=== PATIENT | female | born 1950 | race Caucasian/White ===

== ENCOUNTER → 2017-02-02 | Outpatient (CLI) | payer MEDICARE, OTHER ==
[~2017-02-02] MED LIST: ATEN25TA PO; IBUP200C PO; MAGN1TAB25 PO; PANT40TA2 PO; PRAV40TA2 PO; PROA1AER IN; TYLE325T5 PO
--- NOTE | 2017-02-02 11:38 | REPMRS ---
Patient History The patient states she had a clinical breast exam in 2015. Patient is postmenopausal. Family history of breast cancer in mother at age 56. Digital Mammo Screening Bilat: February 02, 2017 - Exam #: [id number] Bilateral CC and MLO view(s) were taken. Technologist: Opal Cruz Technologist Prior study comparison: January 21, 2016, bilateral digital mammo screening bilat performed at [facility]. December 17, 2014, bilateral digital mammo screening bilat performed at [facility]. December 02, 2013, bilateral bilat screen digital mammo, performed at [facility] ([facility]). FINDINGS: There are scattered fibroglandular densities. There has been no change in the appearance of the mammogram from the prior studies. There is a mild amount of scattered fibroglandular density which is fairly symmetric. There is no interval development of dominant mass, architectural distortion, or clustered microcalcification suggestive of malignancy. ASSESSMENT: BI-RADS/ACR category 1 mammogram. Negative. Recommendation Routine screening mammogram in 1 year (for women over age 40). This mammogram was interpreted with the aid of an FDA-approved computer-aided dectection system. Electronically Signed By: Pillo Piedra MD 02/02/17 [id number]
== END ==
LOC: M RAD 10:54
PROVIDERS: ATTEND Physician Assistant
DX: Z12.31 Encounter for screening mammogram for malignant neoplasm of breast (principal)

== ENCOUNTER → 2017-03-07 | Outpatient (REF) | payer MEDICARE, OTHER ==
[~2017-03-07] MED LIST changes: -IBUP200C PO; +IBUP200C10 PO; -PROA1AER IN; +PROAAER10 IN
== END ==
LOC: M SFHCPLAZ 11:35
PROVIDERS: ATTEND Dermatology
DX: L57.0 Actinic keratosis (principal)
CPT/HCPCS: 11100; 17000; 17003; 88305; G0463

== ENCOUNTER → 2018-02-12 | Outpatient (CLI) | payer MEDICARE, OTHER | LOC: M RAD 09:48 | DX: Z12.31 Encounter for screening mammogram for malignant neoplasm of breast (principal) | CPT/HCPCS: 77067 ==

== ENCOUNTER 2018-03-21 16:29 | Emergency (ER) | payer MEDICARE, OTHER ==
[2018-03-21] MEDS: ADENOSINE 6MG/2ML INJECTION (J0153) IV ×2 (16:38→16:58)
[2018-03-21] MEDS: NS 1,000 ML IV (16:45)
[2018-03-21] MEDS: ASPIRIN 81 MG CHEW TABLET PO (16:45)
[2018-03-21 17:01] LABS: BASO % 0.3 % (0.0-1.0); EOS % 0.3 % (0.0-3.0); HEMATOCRIT 36.7 % (36.0-47.0); HEMOGLOBIN 12.2 g/dl (12.0-15.5); IMMATURE GRANULOCYTE % 0.6 % (0-3.0); LYMPH # 2.2 10^3/uL (1.5-4.5); LYMPH % 18.8 % (24.0-44.0); MEAN CORPUSCULAR HEMOGLOBIN 30.1 pg (27.0-33.0); MEAN CORPUSCULAR HGB CONC 33.2 g/dl (32.0-36.5); MEAN CORPUSCULAR VOLUME 90.6 fl (80.0-96.0); MONO # 0.4 10^3/uL (0.0-0.8); MONO % 3.5 % (0.0-5.0); NEUTROPHILS % 76.5 % (36.0-66.0); PLATELET COUNT, AUTOMATED 322 10^3/uL (150-450); RED BLOOD COUNT 4.05 10^6/uL (4.00-5.40); RED CELL DISTRIBUTION WIDTH 14.4 % (11.5-14.5); WHITE BLOOD COUNT 11.8 10^3/uL (4.0-10.0)
[2018-03-21 17:13] LABS: INR 0.93; PROTHROMBIN TIME 12.5 SECONDS (12.4-14.5)
[2018-03-21 17:38] LABS: ALBUMIN/GLOBULIN RATIO 1.21 (1.00-1.93); ALKALINE PHOSPHATASE 63 U/L (45-117); ALT/SGPT 43 U/L (12-78); ANION GAP 13 MEQ/L (8-16); AST/SGOT 27 U/L (7-37); BILIRUBIN,DIRECT 0.2 MG/DL (0.0-0.2); BILIRUBIN,TOTAL 0.4 MG/DL (0.2-1.0); BLOOD UREA NITROGEN 22 MG/DL (7-18); CALCIUM LEVEL 9.1 MG/DL (8.8-10.2); CARBON DIOXIDE LEVEL 19 MEQ/L (21-32); CHLORIDE LEVEL 108 MEQ/L (98-107); CK-MB VALUE MASS 4.5 NG/ML (<3.6); CPK CREATINE PHOSPHOKINASE 209 U/L (26-192); CREATININE FOR GFR 1.13 MG/DL (0.55-1.30); FREE T4 0.98 NG/DL (0.76-1.46); GLOMERULAR FILTRATION RATE 51.3 (>45); GLUCOSE, FASTING 174 MG/DL (70-100); LIPASE 158 U/L (73-393); MB/CK RELATIVE INDEX 2.15 (< OR =4); POTASSIUM SERUM 4.2 MEQ/L (3.5-5.1); SODIUM LEVEL 140 MEQ/L (136-145); TOTAL PROTEIN 7.3 GM/DL (6.4-8.2); TROPONIN I < 0.02 NG/ML (< 0.10)
[2018-03-21 17:39] LABS: THYROID STIMULATING HORMONE 0.708 uIU/ML (0.358-3.740)
[2018-03-21] MEDS: DIGOXIN INJ 0.5 MG/2 ML AMP (J1160) IV (17:46)
[2018-03-21] MEDS: DIGOXIN 0.25 MG TAB PO (17:46)
== END 2018-03-21 19:18 | disposition home or self-care (01) ==
LOC: M ED 16:29
DX: I47.1 Supraventricular tachycardia (principal); I49.9 Cardiac arrhythmia, unspecified; J45.909 Unspecified asthma, uncomplicated; K21.9 Gastro-esophageal reflux disease without esophagitis; Z79.899 Other long term (current) drug therapy; Z88.1 Allergy status to other antibiotic agents; Z91.010 Allergy to peanuts; Z91.018 Allergy to other foods
CPT/HCPCS: J0153

== ENCOUNTER → 2018-04-01 | Outpatient (REF) | payer MEDICARE, OTHER ==
[2018-04-01 19:24] LABS: BASO % 0.4 % (0.0-1.0); EOS # 0.1 10^3/uL (0.0-0.50); EOS % 0.7 % (0.0-3.0); HEMATOCRIT 37.9 % (36.0-47.0); HEMOGLOBIN 12.4 g/dl (12.0-15.5); IMMATURE GRANULOCYTE % 0.7 % (0-3.0); LYMPH # 1.2 10^3/uL (1.5-4.5); LYMPH % 12.8 % (24.0-44.0); MEAN CORPUSCULAR HEMOGLOBIN 30.5 pg (27.0-33.0); MEAN CORPUSCULAR HGB CONC 32.7 g/dl (32.0-36.5); MEAN CORPUSCULAR VOLUME 93.3 fl (80.0-96.0); MONO # 0.2 10^3/uL (0.0-0.8); NEUTROPHILS # 7.5 10^3/uL (1.8-7.7); NEUTROPHILS % 83.4 % (36.0-66.0); PLATELET COUNT, AUTOMATED 287 10^3/uL (150-450); RED BLOOD COUNT 4.06 10^6/uL (4.00-5.40); RED CELL DISTRIBUTION WIDTH 14.5 % (11.5-14.5)
[2018-04-05 00:09] LABS: D001-IgE D pteronyssinus <0.10 kU/L (Class 0); E001-IgE Cat Epith/Dander < 0.10 kU/L (Class 0); E005-IgE Dog Dander < 0.10 kU/L (Class 0); G002-IgE Bermuda Grass < 0.10 kU/L (Class 0); G008-IgE Kentucky Bluegrass < 0.10 kU/L (Class 0); M001-IgE Penicillium chrysogen < 0.10 kU/L (Class 0); M002 IgE Cladosporium herbaru < 0.10 kU/L (Class 0); M003 IgE Aspergillus fumigatu < 0.10 kU/L (Class 0); M006-IgE Alternaria alternata < 0.10 kU/L (Class 0); T001-IgE Maple/Box Elder < 0.10 kU/L (Class 0); T003-IgE Common Silver Birch 6.76 kU/L (Class IV); T006-IgE Cedar, Mountain < 0.10 kU/L (Class 0); T007-IgE Oak, White 0.62 kU/L (Class II); T008-IgE Elm, American < 0.10 kU/L (Class 0); T015-IgE Ash, White < 0.10 kU/L (Class 0); T041-IgE Hickory, White < 0.10 kU/L (Class 0); T070-IgE White Mulberry < 0.10 kU/L (Class 0); W001-IgE Ragweed, Short < 0.10 kU/L (Class 0); W009-IgE Plantain, English < 0.10 kU/L (Class 0); W014-IgE Pigweed, Rough < 0.10 kU/L (Class 0); W018-IgE Sheep Sorrel < 0.10 kU/L (Class 0)
== END ==
LOC: M LAB REF 16:53
DX: J45.998 Other asthma (principal); R06.00 Dyspnea, unspecified (principal)
CPT/HCPCS: 82785

== ENCOUNTER → 2018-04-08 | Outpatient (REF) | payer MEDICARE, OTHER ==
[2018-04-08 19:11] LABS: DIGOXIN LEVEL 2.3 NG/ML (0.5-2.0)
== END ==
LOC: M LAB REF 17:12
DX: I47.1 Supraventricular tachycardia (principal)
CPT/HCPCS: 80162

== ENCOUNTER → 2018-09-17 | Outpatient (REF) | payer MEDICARE, OTHER ==
[2018-09-17 19:18] LABS: ANION GAP 6 MEQ/L (8-16); BLOOD UREA NITROGEN 14 MG/DL (7-18); CALCIUM LEVEL 8.7 MG/DL (8.8-10.2); CARBON DIOXIDE LEVEL 29 MEQ/L (21-32); CHLORIDE LEVEL 107 MEQ/L (98-107); CREATININE FOR GFR 0.86 MG/DL (0.55-1.30); GLOMERULAR FILTRATION RATE > 60.0 (>45); GLUCOSE, FASTING 87 MG/DL (70-100); POTASSIUM SERUM 4.1 MEQ/L (3.5-5.1); SODIUM LEVEL 142 MEQ/L (136-145)
[2018-09-17 19:19] LABS: HEMATOCRIT 36.9 % (36.0-47.0); HEMOGLOBIN 11.7 g/dl (12.0-15.5); MEAN CORPUSCULAR HEMOGLOBIN 28.7 pg (27.0-33.0); MEAN CORPUSCULAR HGB CONC 31.7 g/dl (32.0-36.5); MEAN CORPUSCULAR VOLUME 90.4 fl (80.0-96.0); PLATELET COUNT, AUTOMATED 256 10^3/uL (150-450); RED BLOOD COUNT 4.08 10^6/uL (4.00-5.40); RED CELL DISTRIBUTION WIDTH 13.9 % (11.5-14.5); WHITE BLOOD COUNT 6.9 10^3/uL (4.0-10.0)
== END ==
LOC: M LABDRAW1 18:02
DX: I47.1 Supraventricular tachycardia (principal)
CPT/HCPCS: 80048

== ENCOUNTER → 2018-10-23 | Outpatient (REF) | payer MEDICARE, OTHER ==
[~2018-10-23] MED LIST changes: +DIGO0.25 PO; -IBUP200C10 PO; +IBUP200C25 PO; -PANT40TA2 PO; +PANT40TA3 PO; +TELM1TAB
[2018-10-23 16:06] LABS: HEMATOCRIT 38.9 % (36.0-47.0); HEMOGLOBIN 12.2 g/dl (12.0-15.5); MEAN CORPUSCULAR HEMOGLOBIN 28.8 pg (27.0-33.0); MEAN CORPUSCULAR HGB CONC 31.4 g/dl (32.0-36.5); PLATELET COUNT, AUTOMATED 290 10^3/uL (150-450); RED BLOOD COUNT 4.23 10^6/uL (4.00-5.40); WHITE BLOOD COUNT 7.8 10^3/uL (4.0-10.0)
[2018-10-23 16:29] LABS: CALCIUM LEVEL 8.8 MG/DL (8.8-10.2); CREATININE FOR GFR 1.03 MG/DL (0.55-1.30); GLOMERULAR FILTRATION RATE 57.1 (>45); POTASSIUM SERUM 4.6 MEQ/L (3.5-5.1)
== END ==
LOC: M LABDRAW1 15:25
PROVIDERS: ATTEND Internal Medicine Cardiovascular Disease
DX: Z01.812 Encounter for preprocedural laboratory examination (principal); I47.1 Supraventricular tachycardia

== ENCOUNTER → 2018-10-25 | Outpatient (CLI) | payer MEDICARE, OTHER ==
--- NOTE | 2018-10-25 21:00 | REP ---
CT chest without contrast: History: Dyspnea. Comparison study: April 04, 2018. CT findings: Preliminary digital certified wellness program manager radiograph is unremarkable. The previously noted noncalcified pulmonary nodule in the right lower lobe is again seen. It measures 6.4 mm on today's axial CT image. It is unchanged in long axis dimension. Subjectively, it appears a little more prominent although its measurements have not changed. Short axis dimension is 4 mm. No new pulmonary nodule is seen. No pleural or pericardial effusion. There is minimal vascular calcification. No bony destructive lesion is seen. There is mild wedging of one of the mid-thoracic vertebrae consistent with an old wedge compression deformity. Degenerative disc changes are noted. These findings are unchanged as well. The left kidney appears to be smaller than the right unchanged. Impression: 6 x 4 mm noncalcified pulmonary nodule right lower lobe. Measurements are unchanged from the April 04, 2018 prior study. Subjectively, it looks a little more prominent. This may be related to differences in slice position. An additional 6-month followup CT interval is recommended. Also noted is mild atrophy of the left kidney at the bottom edge of the imaging field of view. There is an old mild wedge compression deformity in the mid thoracic spine. Electronically Signed by Sarkis Piedra MD 10/26/2018 08:19 A
== END ==
LOC: M RAD 16:18
PROVIDERS: ATTEND Internal Medicine Pulmonary Disease
DX: R06.00 Dyspnea, unspecified (principal)

== ENCOUNTER → 2019-02-05 | Outpatient (CLI) | payer MEDICARE, OTHER ==
[~2019-02-05] MED LIST changes: -MAGN1TAB25 PO; +MAGN1TAB26 PO; +SING5CHW23 PO; +SYMB16INH INH
[2019-02-05 13:18] LABS: HEMATOCRIT 39.5 % (36.0-47.0); HEMOGLOBIN 12.4 g/dl (12.0-15.5); MEAN CORPUSCULAR HEMOGLOBIN 29.3 pg (27.0-33.0); MEAN CORPUSCULAR HGB CONC 31.4 g/dl (32.0-36.5); MEAN CORPUSCULAR VOLUME 93.4 fl (80.0-96.0); PLATELET COUNT, AUTOMATED 264 10^3/uL (150-450); RED BLOOD COUNT 4.23 10^6/uL (4.00-5.40); WHITE BLOOD COUNT 6.5 10^3/uL (4.0-10.0)
[2019-02-05 13:30] LABS: INR 0.96; PROTHROMBIN TIME 12.9 SECONDS (12.1-14.4)
--- NOTE | 2019-02-05 13:48 | REP ---
Chest two views HISTORY: Preop Comparison: 03/21/2018 Linear density is present in the left lower lobe consistent with scar. The right lung is clear. The heart is normal in size. The pulmonary vasculature is normal in appearance. There is an old compression fracture of a mid thoracic vertebral body. Postoperative change is present in the the left shoulder. IMPRESSION: No acute disease. Electronically Signed by Antwon Elena MD 02/05/2019 01:39 P
[2019-02-05 14:15] LABS: ERYTHROCYTE SEDIMENTATION RATE 11 mm/hr (0-30)
[2019-02-05 15:32] LABS: ALBUMIN 3.8 GM/DL (3.2-5.2); ALT/SGPT 36 U/L (12-78); BILIRUBIN,TOTAL 0.4 MG/DL (0.2-1.0); BLOOD UREA NITROGEN 15 MG/DL (7-18); CALCIUM LEVEL 8.9 MG/DL (8.8-10.2); CARBON DIOXIDE LEVEL 26 MEQ/L (21-32); CHLORIDE LEVEL 108 MEQ/L (98-107); CREATININE FOR GFR 0.93 MG/DL (0.55-1.30); GLOMERULAR FILTRATION RATE > 60.0 (>45); GLUCOSE, FASTING 85 MG/DL (70-100); POTASSIUM SERUM 4.4 MEQ/L (3.5-5.1); SODIUM LEVEL 141 MEQ/L (136-145); TOTAL PROTEIN 7.3 GM/DL (6.4-8.2)
--- NOTE | 2019-02-06 00:44 | ECGEPIP ---
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
== END ==
LOC: M LAB 12:23
PROVIDERS: ATTEND Orthopaedic Surgery
DX: Z01.810 Encounter for preprocedural cardiovascular examination (principal); M17.11 Unilateral primary osteoarthritis, right knee; J45.998 Other asthma

== ENCOUNTER → 2019-02-13 | Outpatient (CLI) | payer MEDICARE, OTHER ==
--- NOTE | 2019-02-13 12:32 | REPMRS ---
Patient History The patient states she had a clinical breast exam in November 2018.Family history of breast cancer at age 56 in mother. 3D TOMOSYNTHESIS WAS PERFORMED. Digital Mammo Screening Bilat: February 13, 2019 - Exam #: [id number] Bilateral CC and MLO view(s) were taken. Technologist: Ly Sinha, Technologist Prior study comparison: February 12, 2018, bilateral digital mammo screening bilat performed at [facility]. February 02, 2017, bilateral digital mammo screening bilat performed at [facility]. FINDINGS: There are scattered fibroglandular densities. There has been no change in the appearance of the mammogram from the prior studies. There is a mild amount of residual fibroglandular tissue which is fairly symmetric. There is no interval development of dominant mass, architectural distortion, or clustered microcalcification suggestive of malignancy. Assessment: BI-RADS/ACR category 1 mammogram. Negative Mammogram. Recommendation Routine screening mammogram in 1 year (for women over age 40). This mammogram was interpreted with the aid of an FDA-approved computer-aided dectection system. Electronically Signed By: En Myrick MD 02/13/19 [id number]
== END ==
LOC: M RAD 09:02
PROVIDERS: ATTEND Obstetrics & Gynecology
DX: Z12.31 Encounter for screening mammogram for malignant neoplasm of breast (principal); Z80.3 Family history of malignant neoplasm of breast

== ENCOUNTER 2019-02-19 10:15 | Inpatient (IN) | payer MEDICARE, OTHER ==
--- NOTE | 2019-02-18 08:49 | HPE ---
DATE OF ANTICIPATED ADMISSION: 02/19/2019 ATTENDING PHYSICIAN: Evin Ortega MD CHIEF COMPLAINT: Right knee pain and stiffness. HISTORY: This is a pleasant, 68-year-old female patient with progressively worsening left knee pain and stiffness. She has failed to improve with conservative management and has elected for surgery for her continued symptoms. She has been consented for a right total knee arthroplasty by Dr. Manley. ALLERGIES: CIPRO, KEFLEX. CURRENT MEDICATIONS: - Ellipta 200 mcg - magnesium 500 mg - Ventolin 108 mcg - pravastatin sodium 40 mg - Protonix 40 mg - telmisartan 40 mg - atenolol 25 mg PAST MEDICAL HISTORY: 1. Adenomatous polyp of colon. 2. History of urinary tract infections. 3. Paroxysmal supraventricular tachycardia. 4. Gastroesophageal reflux disease (GERD). 5. Hypercholesterolemia. 6. Asthma. 7. Varicose veins. 8. Hypertension. 9. Unilateral renal atrophy. 10. Dry eyes. 11. Allergic rhinitis. PAST SURGICAL HISTORY: 1. Left ulnar shortening 2012. 2. Bilateral foot surgery 2008, 2010. 3. Lumbar laminectomy 2010. 4. Urethral sling 1991. 5. Varicose vein surgery. 6. Dilation of Schatzki's ring. 7. Left rotator cuff repair 2015. 8. Abdominoplasty. 9. Tubal ligation 1986. FAMILY HISTORY: Father: , coronary artery disease. Mother: Hypertension, hypercholesterolemia, , breast cancer. SOCIAL HISTORY: Patient is a nonsmoker and rarely consumes alcohol. REVIEW OF SYSTEMS: Denies fever, chills, chest pain, shortness of breath, nausea, vomiting, diarrhea. Denies any recent upper respiratory or urinary tract infection symptoms. Reports persistent right knee pain with weightbearing. PHYSICAL EXAMINATION: Height 5' 2". Weight 160. Temperature 98.2. She is normocephalic, atraumatic, alert and oriented, in no apparent distress. S1 and S2 auscultated with no murmurs, rubs, gallops. Lungs: Clear to auscultation bilaterally with no wheezes, rales, rhonchi. Abdomen: Soft, nontender. Neck: Supple with no lymphadenopathy or jugular venous distention (JVD). Right lower extremity with intact range of motion, overlying skin is intact. Right lower extremity is well perfused. Chest x-ray with no acute cardiopulmonary disease. EKG with sinus rhythm, within normal limits. LABS: White blood count 6.5. Red blood count 4.23. Hemoglobin 12.4, Hematocrit 39.5. ESR 11. PT 12.9. INR 0.96. BUN 15. Creatinine 0.93. Preoperative medical optimization with Dr. Godfrey was reviewed, and patient also received cardiac clearance. IMPRESSION: Degenerative changes right knee. PLAN: Consented for right total knee arthroplasty with Dr. Manley.
[~2019-02-19] VITALS: Ht 157.5 cm; Wt 72.6 kg
[~2019-02-19 10:15] MED LIST changes: +LIDOCAINE 1% MDV 20ML VIAL SQ PRN
[2019-02-19] MEDS ORDERED: LR 1,000 ML IV ONE (11:00)
[2019-02-19] MEDS ORDERED: ACETAMINOPHEN 500 MG TAB PO ONE (11:15)
[2019-02-19] MEDS ORDERED: VANCOMYCIN HCL 1,000 MG, VIAL MATE ADAPTER 1 EACH in D5W 250 ML IV ONE (11:15)
[2019-02-19] MEDS ORDERED: VANCOMYCIN 1000 MG/20 ML VIAL (J3370) As Ordered ONE (12:30)
[2019-02-19] MEDS ORDERED: ACET1TAB55 PO (13:10)
[2019-02-19] MEDS ORDERED: EPINEPHrine INJ 1 MG/ML 1ML AMP As Ordered ONE ×2 (13:17→14:36)
[2019-02-19] MEDS ORDERED: TRANEXAMIC ACID 100 MG/ML 10ML VIAL As Ordered ONE ×2 (13:17→14:36)
[2019-02-19] MEDS ORDERED: BUPIVACAINE LIPOSOME/PF 1.3% 20ML VIAL (13.3MG/ML)(EXPAREL)(C9290 PER1MG) As Ordered ONE ×3 (13:17→14:54)
[2019-02-19] MEDS ORDERED: ceFAZolin 1GM INJ (J0690 PER 500MG) As Ordered ONE (13:17)
[2019-02-19] MEDS ORDERED: BUPIVACAINE HCL 0.25% 30 ML VIAL As Ordered ONE (13:17)
[2019-02-19] MEDS ORDERED: LIDOCAINE 2% INJ 100 MG/5 ML SDV (FOR ANES.) As Ordered ONE (13:58)
[2019-02-19] MEDS ORDERED: PROPOFOL 500 MG/50 ML VIAL As Ordered ONE (14:01)
[2019-02-19] MEDS ORDERED: MIDAZOLAM INJ 2 MG/2 ML VIAL (J2250) As Ordered ONE ×2 (14:01→14:09)
[2019-02-19] MEDS ORDERED: dexameTHASONE 4 MG/ML 1ML VIAL (J1100) As Ordered ONE (14:02)
[2019-02-19] MEDS ORDERED: fentaNYL 100 MCG/2 ML INJECTION (J3010) As Ordered ONE (14:09)
[2019-02-19] MEDS ORDERED: BUPIVACAINE/DEXTROSE 0.75% 2 ML AMP As Ordered ONE (14:10)
[2019-02-19] MEDS ORDERED: BUPIVACAINE HCL 0.25% 10 ML VIAL As Ordered ONE (14:36)
[2019-02-19] MEDS ORDERED: fentaNYL 100 MCG/2 ML INJECTION (J3010) IV PRN ×2 (15:00→17:45)
[2019-02-19] MEDS ORDERED: MIDAZOLAM INJ 2 MG/2 ML VIAL (J2250) IV PRN (15:00)
[2019-02-19] MEDS ORDERED: ACETAMINOPHEN TAB 650MG DOSE (2X325MG) PO PRN (17:30)
[2019-02-19] MEDS ORDERED: FLEET ENEMA PR PRN (17:30)
[2019-02-19] MEDS ORDERED: ONDANSETRON 4MG/2ML VIAL (J2405) IV PRN (17:45)
[2019-02-19] MEDS ORDERED: MORPHINE 10 MG/ML 1ML VIAL (J2270) IV PRN (17:45)
[2019-02-19] MEDS ORDERED: LR 1,000 ML IV SCH (17:45)
[2019-02-19] MEDS ORDERED: HYDROMORPHONE HCL 0.5 MG/ 0.5 ML SYRINGE (J1170 PER 1) IV PRN (17:45)
--- NOTE | 2019-02-19 18:13 | REP ---
HISTORY: Postoperative TKR. The femoral and tibial components of the total knee prosthesis are well-seated and well approximated. The alignment is near anatomical. There is expected postoperative soft tissue swelling. There is an anterior skin staple line in place. Electronically Signed by Perry Cedillo DO 02/20/2019 01:22 P
[2019-02-19 18:50] VITALS: BP 140/80
[2019-02-19] MEDS: LR 1,000 ML IV SCH (18:50)
[2019-02-19 19:20] VITALS: BP 153/87
[2019-02-19 20:20] VITALS: BP 143/79
[2019-02-19] MEDS: HYDROMORPHONE HCL 0.5 MG/ 0.5 ML SYRINGE (J1170 PER 1) IV PRN (21:00)
[2019-02-19 21:20] VITALS: BP 155/81
[2019-02-19 22:20] VITALS: BP 139/78
[2019-02-19 23:20] VITALS: BP 141/83
[2019-02-20 02:00] VITALS: BP 137/72
[2019-02-20] MEDS: HYDROMORPHONE HCL 0.5 MG/ 0.5 ML SYRINGE (J1170 PER 1) IV PRN ×2 (02:04→06:09)
[2019-02-20] MEDS: VANCOMYCIN HCL 1,000 MG, VIAL MATE ADAPTER 1 EACH in D5W 250 ML IV SCH ×2 (02:04→14:01)
[2019-02-20 06:00] VITALS: BP 126/63
[2019-02-20] MEDS: LR 1,000 ML IV SCH (06:08)
[2019-02-20] MEDS ORDERED: PERCOCET 5MG/325MG TAB PO PRN (06:15)
[2019-02-20] MEDS ORDERED: ONDANSETRON 4 MG TAB (S0181) PO PRN (06:15)
[2019-02-20 06:34] LABS: HEMATOCRIT 37.7 % (36.0-47.0); MEAN CORPUSCULAR HEMOGLOBIN 29.1 pg (27.0-33.0); MEAN CORPUSCULAR HGB CONC 31.8 g/dl (32.0-36.5); MEAN CORPUSCULAR VOLUME 91.3 fl (80.0-96.0); PLATELET COUNT, AUTOMATED 280 10^3/uL (150-450); RED BLOOD COUNT 4.13 10^6/uL (4.00-5.40); WHITE BLOOD COUNT 12.8 10^3/uL (4.0-10.0)
[2019-02-20 06:52] LABS: BLOOD UREA NITROGEN 16 MG/DL (7-18); CARBON DIOXIDE LEVEL 26 MEQ/L (21-32); CHLORIDE LEVEL 106 MEQ/L (98-107); CREATININE FOR GFR 0.89 MG/DL (0.55-1.30); GLOMERULAR FILTRATION RATE > 60.0 (>45); GLUCOSE, FASTING 140 MG/DL (70-100); SODIUM LEVEL 139 MEQ/L (136-145)
[2019-02-20 08:00] VITALS: BP 142/70
[2019-02-20] MEDS ORDERED: RIVAROXABAN 10 MG TAB (XARELTO) PO SCH ×2 (08:00→18:00)
[2019-02-20] MEDS ORDERED: PERC5TAB12 PO (08:37)
[2019-02-20] MEDS ORDERED: XARE10TA PO (08:37)
[2019-02-20] MEDS: MOM 30ML SUSPENSION UDC PO SCH (09:10)
[2019-02-20] MEDS: MIRALAX *UNIT DOSE* 17GM PACKET PO SCH (09:10)
--- NOTE | 2019-02-20 09:31 | RO ---
DATE OF OPERATION: 02/19/2019 PREOPERATIVE DIAGNOSIS: Right knee degenerative arthritis. POSTOPERATIVE DIAGNOSIS: Right knee degenerative arthritis. PROCEDURE: Right total knee arthroplasty using a size 5 Attune cruciate-retaining femoral component with a size 5 tibial tray and a 6-mm rotating-platform polyethylene insert and a 35-mm polyethylene patellar button. The prosthesis was made by [employer]. All components were cemented. SURGEON: Evin Manley MD GLASS TINTER: Diana Cisneros PA-C ANESTHESIA: Spinal with right femoral nerve block. COMPLICATIONS: None. ESTIMATED BLOOD LOSS: 20 mL. SPECIMEN: Joint surface. DESCRIPTION OF PROCEDURE: Antibiotics were given intravenously preoperatively and a successful right femoral nerve block and then spinal anesthetic was induced. The tourniquet was placed on the right upper thigh and not inflated. The right lower extremity was carefully prepped and draped in the usual sterile fashion. The leg elevated. Then, after appropriate time-out, the tourniquet was inflated, and then a longitudinal incision was made for a medial parapatellar approach to the knee. Bovie cautery was used to coagulate the crossing vessels. We dissected down to the capsule. Capsule arthrotomy was then performed, and then subperiosteal dissection around the proximal medial and lateral tibial plateau was performed. Then, the patella was everted. The knee was flexed. Anterior cruciate ligament (ACL) debrided. Drill placed down the center of the femoral canal, followed by the intramedullary daisy and the distal femoral cutting jig set at a 9-mm resection level for 5-degree valgus for a right knee. The distal femoral cut was then performed. AP sizing jig measured for a size 5. 3 degrees of external rotation were dialed in, pins placed, 4-in-1 block applied, anterior and posterior chamfer cuts performed. We then placed the jig for the notchplasty and the femur, secured it into position, and then the saw was used to perform the notchplasty. We then exposed the proximal tibia and used the extramedullary alignment jig to estimate being parallel to the mechanical axis of the tibia. We referenced off the medial tibial condyle at 4-mm resection level. The block was pinned in position. A secondary check with extramedullary daisy confirmed that we appeared to be parallel to the mechanical axis. The proximal tibial osteotomy thus performed. Then placed the lamina vat skimmer laterally and performed a completion of medial meniscectomy and debridement of the posterior and medial osteophytes, and then placed the lamina vat skimmer medially, and performed a completion of lateral meniscectomy with debridement of the posterior and lateral osteophytes. The spacer block noted that it was quite tight both in flexion and in extension, and I did note that the proximal tibial osteotomy piece was actually quite thin. Thus, I took an additional 4 mm. Then, the spacer block fit nicely at 6 mm in both flexion and in extension to varus-valgus stress testing. We then exposed the proximal tibia, sized for a #5 tray, which was pinned in position, followed by the reamer and the broach, and then the polyethylene placed. The trail femoral component was placed, brought the knee into extension, everted the patella, and performed a patellar osteotomy, sized for a 35 button. The lug holes drilled. The trial placed. Patellofemoral tracking was anatomic. The knee was nice and stable to varus and valgus stress testing in full extension and in flexion. She was not excessively tight; and thus, I thought this was the appropriate sized component to use. The drill holes were placed on the femur. We removed all the trial components and placed Exparel in the subperiosteal tissues around the distal femur and the proximal tibia, and then Herminio Inez Dontekim mixed the cement on the back table as I prepared the bony surfaces for cementing with a copious amount of pulse lavage irrigant solution. She was also critical to the success of this difficult surgery by helping to manipulate the knee, help with appropriate soft tissue retraction, help to prepare the patient, close wound, amongst many other tasks to allow me to perform the operation smoothly, efficiently, and safely. We then cemented the tibial tray, removed excess cement, placed the polyethylene, cemented the femoral component, and then remove the excess cement, and brought the knee out in extension, cemented the patellar button, held it with a clamp with the knee in extension until the cement had hardened. As we were awaiting this, we copiously pulsatile lavage irrigated out the knee joint and then instilled tranexamic acid and then began closing the apex of the arthrotomy with two #1 polydioxanone suture (PDS) sutures. Then, we closed the medial parapatellar area with a #1 PDS suture, and then a double-arm #1 Stratafix was used to close the capsule. Then, the tourniquet was released. We copiously irrigated again, closed the deep subdermal tissues with interrupted #2-0 PDS sutures. The skin was closed with reyna, covered by an Optifoam with dry sterile bulky dressing. She was then transferred to the recovery room in stable condition. There were no intraoperative complications.
[2019-02-20] MEDS: PERCOCET 5MG/325MG TAB PO PRN ×3 (10:44→20:22)
[2019-02-20] MEDS ORDERED: IPRATROPIUM 0.5MG/ALBUTEROL 2.5MG INH SOL UD 3ML (DUONEB)(J7620) NEB PRN (11:00)
[2019-02-20] MEDS: PRAVASTATIN 20 MG TAB PO SCH (13:56)
[2019-02-20] MEDS: ATENOLOL 12.5MG PER 1/2 TABLET PO SCH ×2 (13:56→20:22)
[2019-02-20] MEDS: PANTOPRAZOLE 40MG TAB (PROTONIX) PO SCH (13:57)
[2019-02-20] MEDS: TELMISARTAN 20 MG TAB PO SCH (13:58)
[2019-02-20 14:00] VITALS: BP 155/75
--- NOTE | 2019-02-20 15:57 | CR.PDOC ---
General Date of Consultation: February 20, 2019 Consultation REASON FOR CONSULTATION/CHIEF COMPLAINT: [Hospital's medical management]. HISTORY OF PRESENT ILLNESS: [68-year-old female with significant past medical history of worsening left knee pain and stiffness, proximal supraventricular tachycardia, GERD, hypercholesteremia, asthma, hypertension who is status post total right knee arthroplasty by Dr. Lake. Hospitalist was consulted for medical management. Patient resting comfortably on the surgical floor. Denies of any nausea vomiting. Patient denies of any acute pain. Patient willing to work with PT and OT. Family at the bedside.]. ALLERGIES: Please see below. HOME MEDICATIONS: Please see below. PAST MEDICAL HISTORY: Proximal supraventricular tachycardia Osteoarthritis GERD Hyperglycemia Asthma Hypertension Allergies Varicose veins PAST SURGICAL HISTORY: Left ulnar shortening 2012. Bilateral foot surgery 2008, 2010. Lumbar laminectomy 2010. Urethral sling 1991. Varicose vein surgery. Dilation of Schatzki's ring. Left rotator cuff repair 2015. Abdominoplasty. Tubal ligation 1986. FAMILY HISTORY: Father: , coronary artery disease. Mother: Hypertension, hypercholesterolemia, , breast cancer SOCIAL HISTORY: Patient is a nonsmoker and rarely consumes alcohol REVIEW OF SYSTEMS: Template review systems negative other than those described in HPI PHYSICAL EXAMINATION: VITAL SIGNS: Please see below GENERAL APPEARANCE: Resting comfortably HEENT: Normocephalic, PERRLA, Mucous moist, CARDIOVASCULAR: S1,S2, pulse present, regularly, regular LUNGS: Equal air entry b/l, no wheezes or crackle ABDOMEN: Soft, BS present, no tenderness, no guarding EXTREMITIES: B/L no edema, capillary refill present , status post right knee surgery SKIN: Warm, No fever NEUROLOGICAL: Cranial nerves grossly intact PSYCHIATRIC: Normal mood and affect for current situation LABORATORY DATA: Please see below. ASSESSMENT/PLAN: 68-year-old female with significant past medical history of worsening left knee pain and stiffness, proximal supraventricular tachycardia, GERD, hypercholesteremia, asthma, hypertension who is status post total right knee arthroplasty by Dr. Lake. Hospitalist was consulted for medical management. Right knee total arthroplasty -Further recommendation as per orthopedic team -Pain management and DVT prophylaxis as per orthopedic team history of proximal supraventricular tachycardia, resume atenolol Hypertension, telmisartan Asthma, resume home regimen GERD resume pantoprazole Hypoglycemia, resume pravastatin Vital Signs/I&O Vital Signs Date Time Temp Pulse Resp B/P (MAP) Pulse Ox O2 Delivery O2 Flow Rate FiO2 02/20/19 14:00 97.8 76 18 155/75 (101) 94 02/19/19 14:56 3 I&O- Last 24 Hours up to 6 AM 02/20/19 06:00 Intake Total 2260 ml Output Total 1300 ml Balance 960 ml Laboratory Data Labs 24H Laboratory Tests 2 02/20/19 06:09: Nucleated Red Blood Cells % (auto) 0.0, Anion Gap 7L, Glomerular Filtration Rate > 60.0, Blood Urea Nitrogen 16, Creatinine 0.89, Sodium Level 139, Potassium Level 4.0, Chloride Level 106, Carbon Dioxide Level 26, Calcium Level 9.0 CBC/BMP Laboratory Tests 02/20/19 06:09 Red Blood Count 4.13, Mean Corpuscular Volume 91.3, Mean Corpuscular Hemoglobin 29.1, Mean Corpuscular Hemoglobin Concent 31.8 L, Red Cell Distribution Width 14.2, Calcium Level 9.0 Allergies Coded Allergies: NUTS (Unverified Allergy, Severe, BREATHING PROBLEM, 01/23/19) cephalexin (Verified Allergy, Severe, THROAT SWELLING, 01/23/19) ciprofloxacin (Verified Allergy, Severe, throat swelling, 01/23/19) Kiwi (Verified Adverse Reaction, Mild, ITCHY, 01/23/19) Home Medications Scheduled Atenolol (Atenolol) 25 Mg Tab, 25 MG PO BID, (Reported) TAKES 1/2 TAB IN AM AND 1 TAB IN PM Budesonide/Formoterol (Symbicort 160-4.5 Mcg Inhaler) 6 Gm Hfa.aer.ad, 2 PUFF INH BID, (Reported) Magnesium Oxide (Magnesium Oxide) 400 Mg Tab, 400 MG PO QHS, (Reported) Montelukast Sodium (Singulair) 5 Mg Tab.chew, 10 MG PO QHS, (Reported) Pantoprazole Sodium (Pantoprazole Sodium) 40 Mg Tab, 40 MG PO DAILY, (Reported) Pravastatin Sodium (Pravastatin Sodium) 40 Mg Tab, 40 MG PO DAILY, (Reported) Rivaroxaban (Xarelto) 10 Mg Tablet, 10 MG PO DAILY for 12 Days, #12 Telmisartan (Telmisartan) 40 Mg Tab, DAILY, (Reported) Scheduled PRN Acetaminophen (Acetaminophen) 325 Mg Tablet, 650 MG PO Q4-6HP PRN for PAIN, (Reported) Albuterol Sulfate (Proair Hfa) 108 Mcg/Act Aer, 108 MCG IN PRN PRN for SOB/WHEEZING, (Reported) Oxycodone HCl/Acetaminophen (Percocet 5-325 mg Tablet) 1 Each Tablet, 1 TAB PO Q4H PRN for PAIN, #30 VAUGHN ALMAZAN MD February 20, 2019 15:57
[2019-02-20] MEDS: SYMBICORT 160/4.5MCG INHALER 6GM INH SCH (19:08)
[2019-02-20] MEDS ORDERED: MONTELUKAST 5 MG CHEWABLE TABLET PO SCH (21:00)
[2019-02-20 22:00] VITALS: BP 161/76
[2019-02-20] MEDS: MORPHINE 15 MG SA TAB PO PRN (22:33)
[2019-02-21] MEDS: PERCOCET 5MG/325MG TAB PO PRN ×2 (00:35→06:11)
[2019-02-21 06:00] VITALS: BP 153/83
[2019-02-21 06:43] LABS: HEMATOCRIT 34.3 % (36.0-47.0); MEAN CORPUSCULAR HGB CONC 32.1 g/dl (32.0-36.5); MEAN CORPUSCULAR VOLUME 93.5 fl (80.0-96.0); PLATELET COUNT, AUTOMATED 245 10^3/uL (150-450); RED BLOOD COUNT 3.67 10^6/uL (4.00-5.40); WHITE BLOOD COUNT 11.7 10^3/uL (4.0-10.0)
[2019-02-21 07:09] LABS: CALCIUM LEVEL 8.7 MG/DL (8.8-10.2); CREATININE FOR GFR 1.02 MG/DL (0.55-1.30); GLOMERULAR FILTRATION RATE 57.5 (>45); POTASSIUM SERUM 3.9 MEQ/L (3.5-5.1)
[2019-02-21] MEDS: SYMBICORT 160/4.5MCG INHALER 6GM INH SCH (07:26)
[2019-02-21] MEDS ORDERED: MS C15TA8 PO (07:50)
[2019-02-21] MEDS: TELMISARTAN 20 MG TAB PO SCH (09:00)
[2019-02-21] MEDS: MIRALAX *UNIT DOSE* 17GM PACKET PO SCH (09:00)
[2019-02-21] MEDS: MOM 30ML SUSPENSION UDC PO SCH (09:00)
[2019-02-21 09:25] VITALS: BP 153/83
[2019-02-21] MEDS: ATENOLOL 12.5MG PER 1/2 TABLET PO SCH (09:25)
[2019-02-21] MEDS: PRAVASTATIN 20 MG TAB PO SCH (09:26)
[2019-02-21] MEDS: PANTOPRAZOLE 40MG TAB (PROTONIX) PO SCH (09:26)
[2019-02-21] MEDS: MORPHINE 15 MG SA TAB PO PRN (10:32)
--- NOTE | 2019-02-21 10:59 | IPNPDOC ---
Date Seen The patient was seen on 02/21/19. Progress Note SUBJECTIVE: Patient without any acute complaints today other than some soreness of her knee. She worked with PT OT. Otherwise no acute issues and is planned for discharge by orthopedics today. OBJECTIVE PHYSICAL EXAMINATION: VITAL SIGNS: Please see below GENERAL APPEARANCE: Resting comfortably HEENT: Normocephalic, PERRLA, Mucous moist, CARDIOVASCULAR: S1,S2, pulse present, regularly, regular LUNGS: Equal air entry b/l, no wheezes or crackle ABDOMEN: Soft, BS present, no tenderness, no guarding EXTREMITIES: B/L no edema, capillary refill present , status post right knee surgery SKIN: Warm, No fever NEUROLOGICAL: Cranial nerves grossly intact PSYCHIATRIC: Normal mood and affect for current situation LABORATORY DATA: Please see below. LABORATORY DATA, IMAGING STUDIES, MICROBIOLOGY: Please see below. ASSESSMENT/PLAN: 68-year-old female with significant past medical history of worsening left knee pain and stiffness, proximal supraventricular tachycardia, GERD, hypercholesteremia, asthma, hypertension who is status post total right knee arthroplasty by Dr. Lake. Hospitalist was consulted for medical management. Right knee total arthroplasty -Further recommendation as per orthopedic team -Pain management and DVT prophylaxis as per orthopedic team history of proximal supraventricular tachycardia, resume atenolol Hypertension, telmisartan Asthma, resume home regimen GERD resume pantoprazole Hypoglycemia, resume pravastatin VS, I&O, 24H, Fishbone Vital Signs/I&O Vital Signs Date Time Temp Pulse Resp B/P (MAP) Pulse Ox O2 Delivery O2 Flow Rate FiO2 02/21/19 10:32 18 02/21/19 09:25 73 153/83 02/21/19 06:00 98.0 96 02/19/19 14:56 3 I&O- Last 24 Hours up to 6 AM 02/21/19 06:00 Intake Total 1470 ml Output Total 950 ml Balance 520 ml Laboratory Data 24H LABS Laboratory Tests 2 02/21/19 06:25: Nucleated Red Blood Cells % (auto) 0.0, Anion Gap 8, Glomerular Filtration Rate 57.5, Blood Urea Nitrogen 17, Creatinine 1.02, Sodium Level 141, Potassium Level 3.9, Chloride Level 107, Carbon Dioxide Level 26, Calcium Level 8.7L CBC/BMP Laboratory Tests 02/21/19 06:25 Red Blood Count 3.67 L, Mean Corpuscular Volume 93.5, Mean Corpuscular Hemoglobin 30.0, Mean Corpuscular Hemoglobin Concent 32.1, Red Cell Distribution Width 14.7 H, Calcium Level 8.7 L VAUGHN ALMAZAN MD February 21, 2019 10:59
== END 2019-02-21 13:35 | disposition home or self-care (01) | DRG 470 ==
LOC: M OR 12:14 → M MS5PR 18:35
PROVIDERS: ADMIT Orthopaedic Surgery; ATTEND Orthopaedic Surgery
PROC: 0SRC0J9 Replacement of Right Knee Joint with Synthetic Substitute, Cemented, Open Approach (ICD-10-PCS; principal; 2019-02-19 15:20)
DX: M17.11 Unilateral primary osteoarthritis, right knee (principal); I47.1 Supraventricular tachycardia; K21.9 Gastro-esophageal reflux disease without esophagitis; E78.00 Pure hypercholesterolemia, unspecified; J45.909 Unspecified asthma, uncomplicated; I12.9 Hypertensive chronic kidney disease with stage 1 through stage 4 chronic kidney disease, or unspecified chronic kidney disease; N18.3 Chronic kidney disease, stage 3 (moderate); R91.8 Other nonspecific abnormal finding of lung field; E83.42 Hypomagnesemia; I83.90 Asymptomatic varicose veins of unspecified lower extremity; H04.123 Dry eye syndrome of bilateral lacrimal glands; Z86.010 Personal history of colon polyps; Z79.899 Other long term (current) drug therapy; Z87.440 Personal history of urinary (tract) infections; Z88.1 Allergy status to other antibiotic agents; Z88.8 Allergy status to other drugs, medicaments and biological substances

== ENCOUNTER → 2019-04-30 | Outpatient (CLI) | payer MEDICARE, OTHER ==
[~2019-04-30] MED LIST changes: +ACET1TAB55 PO; -LIDOCAINE 1% MDV 20ML VIAL SQ PRN; +MS C15TA8 PO; +PERC5TAB12 PO; +XARE10TA PO
--- NOTE | 2019-04-30 13:22 | REP ---
CT of the chest without IV contrast: Comparisons are 10/25/2018 and 04/04/2018. The studies performed for follow-up of a known right lower lobe lung nodule. There is a 7 mm right lower lobe lung nodule, unchanged from both prior studies. The lack of interval change categorize as nodule is a category II lung nodule with the probability of malignancy less than 1%. There are no other lung masses or nodules. There are no acute infiltrates. No pleural effusions. There is a stable parenchymal scar at the inferior tip of the lingula, unchanged from both prior studies. There is no mediastinal or axillary lymph node enlargement. The study is insensitive for hilar lymph node enlargement in the absence of IV contrast. The unenhanced thoracic aorta is unremarkable. Cardiac size is normal. There is occasional calcified atheroma in the coronary arteries. This is not significantly changed. There is chronic grade 1 anterior wedging compression deformity of the approximate T8 vertebral body, unchanged. There is degenerative disc disease throughout the thoracic spine. This is unchanged. The visualized upper abdominal contents are unremarkable. There is no adrenal nodule. Impression: The 7 mm right lower lobe lung nodule is stable, therefore a category II lung nodule with the probability of malignancy less than 1%. There is a stable parenchymal scar at the inferior tip of the lingula, unchanged. Occasional coronary artery calcified atheroma is identified, unchanged. There is grade 1 T8 vertebral body compression deformity, unchanged. Degenerative disc disease throughout the thoracic spine, unchanged. Otherwise, essentially negative CT study of the chest. Electronically Signed by En Fonseca MD 04/30/2019 01:14 P
== END ==
LOC: M RAD 10:37
PROVIDERS: ATTEND Physician Assistant
DX: R91.1 Solitary pulmonary nodule (principal)

== ENCOUNTER → 2019-12-12 | Outpatient (CLI) | payer MEDICARE, OTHER ==
[~2019-12-12] MED LIST changes: -DIGO0.25 PO; +DIGO0.253 PO; -TELM1TAB; +TELM1TAB35
[2019-12-12 16:36] LABS: BASO # 0.1 10^3/uL (0.0-0.2); BASO % 0.9 % (0.0-1.0); EOS # 0.2 10^3/uL (0.0-0.5); EOS % 3.3 % (0.0-3.0); HEMATOCRIT 37.5 % (36.0-47.0); HEMOGLOBIN 12.1 g/dl (12.0-15.5); LYMPH # 2.3 10^3/uL (1.5-5.0); LYMPH % 34.6 % (24.0-44.0); MEAN CORPUSCULAR HEMOGLOBIN 30.1 pg (27.0-33.0); MEAN CORPUSCULAR HGB CONC 32.3 g/dl (32.0-36.5); MEAN CORPUSCULAR VOLUME 93.3 fl (80.0-96.0); MONO # 0.4 10^3/uL (0.0-0.8); MONO % 6.5 % (0.0-5.0); NEUTROPHILS # 3.6 10^3/uL (1.5-8.5); NEUTROPHILS % 54.5 % (36.0-66.0); PLATELET COUNT, AUTOMATED 248 10^3/uL (150-450); RED BLOOD COUNT 4.02 10^6/uL (4.00-5.40); WHITE BLOOD COUNT 6.6 10^3/uL (4.0-10.0)
[2019-12-12 17:04] LABS: ERYTHROCYTE SEDIMENTATION RATE 7 mm/hr (0-30)
== END ==
LOC: M LAB 16:04
PROVIDERS: ATTEND Psychiatry & Neurology Neurology
DX: I77.6 Arteritis, unspecified (principal)

== ENCOUNTER 2020-02-14 10:42 | Emergency (ER) | payer MEDICARE, OTHER ==
[~2020-02-14] VITALS: Ht 154.9 cm; Wt 70.5 kg
[2020-02-14] MEDS ORDERED: ARNU1INH3 (10:54)
[2020-02-14] MEDS ORDERED: OXYC1TAB23 (10:54)
[2020-02-14] MEDS ORDERED: NS 1,000 ML IV ONE (11:15)
[2020-02-14 11:20] LABS: BASO # 0.1 10^3/uL (0.0-0.2); BASO % 0.6 % (0.0-1.0); EOS # 0.2 10^3/uL (0.0-0.5); EOS % 1.9 % (0.0-3.0); HEMATOCRIT 39.7 % (36.0-47.0); HEMOGLOBIN 12.7 g/dl (12.0-15.5); LYMPH # 2.7 10^3/uL (1.5-5.0); LYMPH % 22.1 % (24.0-44.0); MEAN CORPUSCULAR HEMOGLOBIN 30.4 pg (27.0-33.0); MONO # 0.7 10^3/uL (0.0-0.8); MONO % 5.2 % (0.0-5.0); NEUTROPHILS # 8.7 10^3/uL (1.5-8.5); NEUTROPHILS % 69.8 % (36.0-66.0); PLATELET COUNT, AUTOMATED 260 10^3/uL (150-450); RED BLOOD COUNT 4.18 10^6/uL (4.00-5.40); WHITE BLOOD COUNT 12.4 10^3/uL (4.0-10.0)
[2020-02-14 11:36] LABS: INR 1.05; PROTHROMBIN TIME 13.4 SECONDS (11.8-14.0)
[2020-02-14 11:37] LABS: PARTIAL THROMBOPLASTIN TIME 40.7 SECONDS (25.0-38.4)
[2020-02-14 11:48] LABS: BILIRUBIN,DIRECT 0.2 MG/DL (0.0-0.2); TOTAL PROTEIN 7.7 GM/DL (6.4-8.2)
[2020-02-14] MEDS ORDERED: ISOVUE-370 76% 100ML VIAL As Ordered ONE (11:54)
--- NOTE | 2020-02-14 12:23 | REP ---
Clinical: Right-sided pain with fever. Technique: Axial contrast enhanced images from the lung bases to the pubic symphysis using oral (per protocol) and 100 ml Isovue 370 intravenous contrast material with coronal and sagittal re-formations. Findings: Lung bases are clear. Visualized heart and pericardium normal. Liver, spleen, pancreas, gallbladder, bilateral adrenal glands and right kidney are normal. Left kidney demonstrates chronic atrophy with cortical scarring. The enteric system is without obstruction. Very subtle fat stranding adjacent to the cecum may reflect a mild cecitis. The terminal ileum and visualized portions of the appendix as well as the ileocecal valve appear normal. Pelvis demonstrates normal bladder and age-appropriate uterus/adnexa. No pelvic fluid or ascites. No free air. No obvious adenopathy. Abdominal aorta and vasculature without aneurysm or dissection. Musculoskeletal structures demonstrate age-related changes without acute osseous abnormality. Impression: 1. Very subtle fat stranding adjacent to the cecum raises the possibility of mild cecitis. No evidence for appendicitis. Remainder of the small large bowel is relatively normal. Electronically Signed by Sea Rust MD 02/14/2020 12:14 P
--- NOTE | 2020-02-14 13:02 | REP ---
Clinical: Right upper quadrant pain. Technique: Real time smith scale and color evaluation using curved array transducer. Findings: Liver and pancreas are normal in contour, size, echogenicity without focal hepatic or pancreatic lesion identified. The gallbladder demonstrates mild likely chronic wall thickening to 3.5 mm without gallstones or pericholecystic fluid. No biliary ductal dilatation is appreciated and the common bile duct measures 3.5 mm diameter. Right kidney is normal in reniform shape without hydronephrosis and measures 10.2 x 5.3 x 4.5 cm. No ascites in the visualized right upper quadrant. Impression: Essentially normal right upper quadrant ultrasound. Electronically Signed by Sea Rust MD 02/14/2020 12:54 P
[2020-02-14] MEDS ORDERED: AUGMENTIN 875 MG TAB PO ONE (13:30)
[2020-02-14] MEDS ORDERED: ONDANSETRON 4MG/2ML VIAL IV ONE (13:30)
[2020-02-14] MEDS ORDERED: AUGM875T28 PO (13:32)
[2020-02-14] MEDS ORDERED: ZOFR4TAB16 PO (13:33)
[2020-02-14 14:07] VITALS: BP 139/67
--- NOTE | 2020-02-15 09:14 | ED PDOC ---
Post-Departure Follow-Up yeni young and ruth faxed formal report of ct abd/p for fu Preston Dubois MD February 15, 2020 09:14
== END 2020-02-14 14:08 | disposition home or self-care (01) ==
LOC: M ED 10:42
DX: K52.9 Noninfective gastroenteritis and colitis, unspecified (principal); I10 Essential (primary) hypertension; J45.909 Unspecified asthma, uncomplicated; Z88.8 Allergy status to other drugs, medicaments and biological substances; Z79.899 Other long term (current) drug therapy
CPT/HCPCS: 74177; 76705; 80047; 80076; 81001; 82150; 83605; 83690; 85025; 85610; 85730; 86850; 86900; 86901; 87040; 87088; 87186; 93041; 96361; 96374; 99284; J2405; Q9967

== ENCOUNTER → 2020-03-02 | Outpatient (REF) | payer MEDICARE, OTHER ==
[~2020-03-02] MED LIST changes: +ARNU1INH3; +AUGM875T28 PO; +OXYC1TAB23; +ZOFR4TAB16 PO
== END ==
LOC: M LAB REF 16:07
PROVIDERS: ATTEND Family Medicine
DX: N39.0 Urinary tract infection, site not specified (principal)

== ENCOUNTER → 2020-03-26 | Outpatient (CLI) | payer MEDICARE, OTHER ==
[~2020-03-26] MED LIST changes: -OXYC1TAB23; +OXYC1TAB23 PO; -TELM1TAB35; +TELM1TAB35 PO
== END ==
LOC: M LABSMTC 11:01
PROVIDERS: ATTEND Anesthesiology
DX: Z01.818 Encounter for other preprocedural examination (principal); Z11.59 Encounter for screening for other viral diseases; Z03.818 Encounter for observation for suspected exposure to other biological agents ruled out
CPT/HCPCS: C9803; U0003

== ENCOUNTER 2020-03-29 08:24 | Day surgery (SDC) | payer MEDICARE, OTHER ==
[~2020-03-29] VITALS: Ht 152.4 cm; Wt 70.3 kg
[~2020-03-29 08:24] MED LIST changes: +NS 1,000 ML IV ONE; +PANT40TA29 PO; -PANT40TA3 PO
[2020-03-29] MEDS ORDERED: propofoL 200 MG/20 ML VIAL As Ordered ONE ×2 (08:57→09:29)
[2020-03-29] MEDS ORDERED: LIDOCAINE 2% 100MG/5ML SDV (FOR ANES.) As Ordered ONE (08:57)
[2020-03-29] MEDS ORDERED: ONDANSETRON 4MG/2ML VIAL As Ordered ONE (09:18)
--- NOTE | 2020-03-29 09:23 | ROOR ---
Patient Name: Rishi Manzano Procedure Date: 03/29/2020 9:03 AM Date of : 1950 Age: 69 Room: [facility] Gender: Female Note Status: Finalized Procedure: Upper Endoscopy + Biopsies + Balloon Dilatation Indications: Dysphagia, Heartburn Providers: Victor M Dang MD Referring MD: Ezekiel Godfrey MD Requesting Provider: Medicines: Monitored Anesthesia Care Complications: No immediate complications. Procedure: Pre-Anesthesia Assessment: - The heart rate, respiratory rate, oxygen saturations, blood pressure, adequacy of pulmonary ventilation, and response to care were monitored throughout the procedure. The Endoscope was introduced through the mouth, and advanced to the second part of duodenum. The upper GI endoscopy was accomplished without difficulty. The patient tolerated the procedure well. Findings: The Z-line was regular and was found 35 cm from the incisors. Multiple biopsies were obtained with cold forceps for evaluation to rule out Wheatley's Esophagus randomly at the gastroesophageal junction. A TTS dilator was passed through the scope. Dilation with an 18-19-20 mm balloon dilator was performed to 20 mm. The dilation site was examined and showed no change. A small hiatal hernia was present. No other significant abnormalities were identified in a careful examination of the stomach. The exam of the duodenum was otherwise normal. Impression: - Z-line regular, 35 cm from the incisors. Dilated. - Small hiatal hernia. - Multiple biopsies were obtained at the gastroesophageal junction. - The examination was otherwise normal. Recommendation: - Patient has a contact number available for emergencies. The signs and symptoms of potential delayed complications were discussed with the patient. Return to normal activities tomorrow. Written discharge instructions were provided to the patient. - High fiber diet. - Discharge patient to home. - Continue present medications. - Await pathology results. - Telephone GI clinic for pathology results in 1 week. - Return to referring physician. - Repeat upper endoscopy for surveillance based on pathology results. - The findings and recommendations were discussed with the patient's family. Victor M Dang MD Victor M Dang MD 03/29/2020 9:23:15 AM Electronically signed by Victor M Dang MD Number of Addenda: 0 Note Initiated On: 03/29/2020 9:03 AM Estimated Blood Loss: Estimated blood loss: none.
--- NOTE | 2020-03-29 09:42 | ROOR ---
Patient Name: Rishi Manzano Procedure Date: 03/29/2020 9:03 AM Date of : 1950 Age: 69 Room: [facility] Gender: Female Note Status: Finalized Procedure: Total Colonoscopy to Cecum Indications: High risk colon cancer surveillance: Personal history of colonic polyps, Last colonoscopy: 2014 Providers: Victor M Dang MD Referring MD: Ezekiel Godfrey MD Requesting Provider: Medicines: Monitored Anesthesia Care Complications: No immediate complications. Procedure: Pre-Anesthesia Assessment: - The heart rate, respiratory rate, oxygen saturations, blood pressure, adequacy of pulmonary ventilation, and response to care were monitored throughout the procedure. The Colonoscope was introduced through the anus and advanced to the cecum, identified by appendiceal orifice and ileocecal valve. The colonoscopy was performed without difficulty. The patient tolerated the procedure well. The quality of the bowel preparation was good. Findings: The perianal and digital rectal examinations were normal. Non-bleeding internal hemorrhoids were found during retroflexion. The hemorrhoids were small and Grade I (internal hemorrhoids that do not prolapse). No other significant abnormalities were identified in a careful examination of the remainder of the colon. The exam was otherwise without abnormality on direct and retroflexion views. Impression: - Non-bleeding internal hemorrhoids. - The examination was otherwise normal on direct and retroflexion views. - No specimens collected. - The exam was otherwise normal to the cecum. Recommendation: - Patient has a contact number available for emergencies. The signs and symptoms of potential delayed complications were discussed with the patient. Return to normal activities tomorrow. Written discharge instructions were provided to the patient. - High fiber diet. - Discharge patient to home. - Continue present medications. - Repeat colonoscopy in 5 years for surveillance. - Return to referring physician. - The findings and recommendations were discussed with the patient's family. Victor M Dang MD Victor M Dang MD 03/29/2020 9:42:22 AM Electronically signed by Victor M Dang MD Number of Addenda: 0 Note Initiated On: 03/29/2020 9:03 AM Estimated Blood Loss: Estimated blood loss: none.
[2020-03-29 10:14] VITALS: BP 133/79
== END 2020-03-29 10:16 | disposition home or self-care (01) ==
LOC: M OPP 08:24
PROVIDERS: ATTEND Internal Medicine Gastroenterology
DX: Z12.11 Encounter for screening for malignant neoplasm of colon (principal); Z86.010 Personal history of colon polyps; R12 Heartburn; K44.9 Diaphragmatic hernia without obstruction or gangrene; R13.10 Dysphagia, unspecified; Z79.891 Long term (current) use of opiate analgesic; Z79.899 Other long term (current) drug therapy; Z88.8 Allergy status to other drugs, medicaments and biological substances
CPT/HCPCS: 43239; 88305; G0105; J2405

== ENCOUNTER → 2020-04-14 | Outpatient (CLI) | payer MEDICARE, OTHER ==
[~2020-04-14] MED LIST changes: -NS 1,000 ML IV ONE; -PANT40TA29 PO; +PANT40TA3 PO
--- NOTE | 2020-04-14 11:47 | REP ---
Clinical: Follow up solitary pulmonary nodule. Technique: Axial noncontrast images from the thoracic inlet to the upper abdomen with coronal and sagittal re-formations. Comparison: 04/30/2019. Findings: The 6 mm noncalcified nodule in the periphery of the right lower lobe (image 62) remains unchanged. No further consolidation, nodule or mass lesion appreciated. No pleural effusion. No pneumothorax. Minimal lingular scarring is again noted. The tracheobronchial tree is patent. No obvious adenopathy. Mediastinum demonstrates relatively stable atherosclerotic changes to the thoracic aorta and coronary arteries without aortic aneurysm or cardiomegaly. No pericardial effusion. Small hiatal hernia identified at the gastroesophageal junction. Stable compression deformity of T7 again noted. Impression: 1. Stable 6 mm noncalcified nodule in the right lower lobe. The finding appears unchanged as compared through 04/04/2018 and likely represents stable chronic benign granuloma . 2. No new acute mediastinal or pleuroparenchymal process appreciated. Electronically Signed by Sea Rust MD 04/14/2020 11:38 A
== END ==
LOC: M RAD 11:01
PROVIDERS: ATTEND Internal Medicine Pulmonary Disease
DX: R91.1 Solitary pulmonary nodule (principal)

== ENCOUNTER → 2020-04-15 | Outpatient (CLI) | payer MEDICARE, OTHER ==
--- NOTE | 2020-04-15 15:03 | REPMRS ---
Patient History The patient states she has not had a clinical breast exam in over a year. Family history of breast cancer at age 56 in mother. Digital Woman Screen Mammo: April 15, 2020 - Exam #: [id number] Bilateral CC and MLO view(s) were taken. Technologist: Opal Cruz, Technologist Prior study comparison: February 13, 2019, bilateral digital mammo screening bilat, performed at [facility]. February 12, 2018, bilateral digital mammo screening bilat, performed at [facility]. February 02, 2017, bilateral digital mammo screening bilat, performed at [facility]. FINDINGS: There are scattered fibroglandular densities. The Volpara volumetric breast density category is:B. There has been no change in the appearance of the mammogram from the prior studies. There is a mild amount of scattered fibroglandular density which is fairly symmetric. There is no interval development of dominant mass, architectural distortion, or grouped microcalcification suggestive of malignancy. 3-D tomosynthesis shows no additional findings. Assessment: BI-RADS/ACR category 1 mammogram. Negative Mammogram. Recommendation Routine screening mammogram of both breasts in 1 year (for women over age 40). This patient's Lifetime Breast Cancer Risk is estimated at 13.7 %. This mammogram was interpreted with the aid of an FDA-approved computer-aided dectection system. Electronically Signed By: Pillo Piedra MD 04/15/20 [id number]
== END ==
LOC: M WHC 13:36
PROVIDERS: ATTEND Obstetrics & Gynecology
DX: Z12.31 Encounter for screening mammogram for malignant neoplasm of breast (principal)

== ENCOUNTER → 2020-04-24 | Outpatient (CLI) | payer MEDICARE, OTHER ==
[~2020-04-24] MED LIST changes: +PANT40TA29 PO; -PANT40TA3 PO
== END ==
LOC: M LABSMTC 09:11
PROVIDERS: ATTEND Pain Medicine Pain Medicine
DX: Z01.818 Encounter for other preprocedural examination (principal); Z11.59 Encounter for screening for other viral diseases
CPT/HCPCS: C9803; U0003

== ENCOUNTER → 2021-02-24 | Outpatient (REF) | payer MEDICARE, OTHER | LOC: M LAB REF 13:06 | PROVIDERS: ATTEND Pediatrics | DX: Z03.818 Encounter for observation for suspected exposure to other biological agents ruled out (principal) ==

== ENCOUNTER → 2021-04-19 | Outpatient (CLI) | payer MEDICARE, OTHER ==
--- NOTE | 2021-04-19 13:38 | REPMRS ---
Patient History The patient states she had a clinical breast exam in December 2020. Family history of breast cancer at age 56 in mother. Patient states no breast complaints today. Patient has signed MRS History Sheet. Digital Woman Screen Mammo: April 19, 2021 - Exam #: [id number] Bilateral CC and MLO view(s) were taken. Technologist: Opal Cruz, Technologist Prior study comparison: April 15, 2020, bilateral digital woman screen mammo performed at [facility] and [facility] [place]. February 13, 2019, bilateral digital mammo screening bilat, performed at [facility]. FINDINGS: There are scattered fibroglandular densities. Screening. Digital screening (2D) mammography was performed bilaterally in the CC and MLO projections. Additionally, breast tomosynthesis (3D mammography) was performed bilaterally in the CC and MLO projections. Todays exam was compared to the prior exam/exams. By history, the patient has no complaints of a palpable breast abnormality or other significant breast complaints. The breasts are unchanged in size and shape. There are no blu-soft tissue densities or spiculated masses. There is no internal architectural distortion. Once again, stable benign appearing calcifications are seen.There are no suspicious blu-calcific clusters. Skin thickening or nipple retraction is not present. IMPRESSION: BI-RADS Category 2- Benign Findings. There is no evidence of malignant alteration of the breasts. Followup examination recommended in one year. The Volpara volumetric breast density category is B, there are scattered areas of fibroglandular densities. This mammogram was read with the assistance of [employer],an FDA approved computer aided detection system for mammography. The lifetime Tyrer-Cuzick score is 13 % Negative x-ray reports should not delay surgical consultation if a dominant or clinically suspicious mass is present. Not all breast cancers can be identified by mammography. Therefore, we recommend that you continue to perform regular breast self-examination and physical examination and then promptly contact your physician of any concerns or changes. Adenosis and dense breasts may obscure an underlying neoplasm. Assessment: BI-RADS/ACR category 2 mammogram. Benign Findings. Recommendation Routine screening mammogram of both breasts in 1 year. Electronically Signed By: Perry Cedillo DO 04/19/21 [id number]
== END ==
LOC: M WHC 12:35
PROVIDERS: ATTEND Nurse Practitioner Adult Health
DX: Z12.31 Encounter for screening mammogram for malignant neoplasm of breast (principal); Z80.3 Family history of malignant neoplasm of breast; R92.1 Mammographic calcification found on diagnostic imaging of breast

== ENCOUNTER → 2021-07-08 | Outpatient (REF) | payer MEDICARE, OTHER ==
[2021-07-08 18:02] LABS: APPEARANCE, URINE CLOUDY (CLEAR); BACTERIA, URINE AUTO 1+ (NEGATIVE); BILIRUBIN, URINE AUTO NEGATIVE (NEGATIVE); BLOOD, URINE BLOOD 2+ (NEGATIVE); COLOR, URINE YELLOW (YELLOW); GLUCOSE, URINE (UA) AUTO NEGATIVE (NEGATIVE); KETONE, URINE AUTO NEGATIVE (NEGATIVE); LEUKOCYTE ESTERASE, URINE AUTO 3+ (NEGATIVE); MUCUS, URINE SMALL (NEGATIVE); NITRITE, URINE AUTO POSITIVE (NEGATIVE); PROTEIN, URINE AUTO 2+ mg/dL (NEGATIVE); RBC, URINE AUTO 64 /HPF (0-3); SPECIFIC GRAVITY URINE AUTO 1.008 (1.002-1.035); SQUAMOUS EPITHELIAL CELL UR AU 1 /HPF (0-6); UROBILINOGEN, URINE AUTO 0.2 mg/dL (0.0-2.0); WBC, URINE AUTO 132 /HPF (0-3)
== END ==
LOC: M LAB REF 16:50
PROVIDERS: ATTEND Specialist
DX: R50.9 Fever, unspecified (principal)

== ENCOUNTER → 2021-07-18 | Outpatient (REF) | payer MEDICARE, OTHER | LOC: M LAB REF 16:40 | PROVIDERS: ATTEND Pediatrics | DX: J06.9 Acute upper respiratory infection, unspecified (principal) ==

== ENCOUNTER → 2021-07-21 | Outpatient (REF) | payer MEDICARE, OTHER ==
[~2021-07-21] MED LIST changes: +BREO1INH3 INH; +MONT10TA10 PO; -PROAAER10 IN; +PROAAER10 INH; +ROSU5TAB5 PO
[2021-07-22 17:09] VITALS: BP 139/82
[2021-07-22 19:08] LABS: Lyme Disease IgG/IgM Antibodie <0.91 ISR (0.00-0.90); Lyme Disease IgM Ab Quantitati <0.80 index (0.00-0.79)
== END ==
LOC: M LAB REF 13:38
PROVIDERS: ATTEND Family Medicine
DX: R53.83 Other fatigue (principal); M25.50 Pain in unspecified joint

== ENCOUNTER 2021-07-22 14:12 | Inpatient (IN) | payer MEDICARE, OTHER ==
[~2021-07-22 14:12] MED LIST changes: -BREO1INH3 INH; -MONT10TA10 PO; -ROSU5TAB5 PO
[2021-07-22 17:00] VITALS: BP 139/82
[2021-07-22] MEDS ORDERED: BREO1INH3 INH (17:36)
[2021-07-22] MEDS ORDERED: ROSU5TAB5 PO (17:36)
[2021-07-22 17:41] LABS: HEMATOCRIT 38.8 % (36.0-47.0); HEMOGLOBIN 12.4 g/dl (12.0-15.5); MEAN CORPUSCULAR VOLUME 93.9 fl (80.0-96.0); PLATELET COUNT, AUTOMATED 311 10^3/uL (150-450); RED BLOOD COUNT 4.13 10^6/uL (4.00-5.40); WHITE BLOOD COUNT 9.1 10^3/uL (4.0-10.0)
[2021-07-22 17:57] LABS: INR 0.96; PROTHROMBIN TIME 13.2 SECONDS (12.7-14.5)
[2021-07-22 17:58] LABS: PARTIAL THROMBOPLASTIN TIME 40.4 SECONDS (25.9-37.0)
[2021-07-22 18:03] LABS: ALBUMIN 3.8 GM/DL (3.2-5.2); BILIRUBIN,TOTAL 0.3 MG/DL (0.2-1.0); CALCIUM LEVEL 9.2 MG/DL (8.8-10.2); CREATININE FOR GFR 1.65 MG/DL (0.55-1.30); GLOMERULAR FILTRATION RATE 32.8 (>45); POTASSIUM SERUM 4.7 MEQ/L (3.5-5.1); TOTAL PROTEIN 7.8 GM/DL (6.4-8.2)
[2021-07-22 18:05] LABS: THYROID STIMULATING HORMONE 1.91 uIU/ML (0.358-3.740)
[2021-07-22] MEDS ORDERED: HOME MED LIST COMPLETE! XX SCH (18:20)
[2021-07-22] MEDS ORDERED: ALBUTEROL 90 MCG/ACT 8GM HFA INHALER INH PRN (18:25)
--- NOTE | 2021-07-22 18:38 | REPVR ---
PROCEDURE INFORMATION: Exam: CT Head Without Contrast Exam date and time: 07/22/2021 5:34 PM Age: 70 years old Clinical indication: Other: Ataxia; Additional info: Ataxia, pre-eval for spinal tap TECHNIQUE: Imaging protocol: Computed tomography of the head without contrast. Radiation optimization: All CT scans at this facility use at least one of these dose optimization techniques: automated exposure control; mA and/or kV adjustment per patient size (includes targeted exams where dose is matched to clinical indication); or iterative reconstruction. COMPARISON: No relevant prior studies available. FINDINGS: Brain: There is no evidence of intracranial bleed. Cerebral ventricles: The ventricles are normal in size. Paranasal sinuses: Clear paranasal sinuses. Mastoid air cells: Clear mastoid air cells. Orbital cavity: The orbits are symmetric. Bones/joints: No evidence of fracture. Soft tissues: Unremarkable. IMPRESSION: Normal appearing CT scan of the brain. Electronically signed by: Jude Weems On 07/22/2021 18:38:41 PM
--- NOTE | 2021-07-22 18:58 | HPEPDOC ---
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 Source: Patient, Family History of Present Illness Mrs. Manzano is a 70-year-old female with hypertension, asthma, and recurrent UTIs who presents from neurology's office for ataxia. About 2 weeks ago she had her pneumonia vaccine. Then last Sunday she had her high-dose flu shot. She has had the flu shot before without problem, but unsure if she had a high-dose flu shot before. Then on Sunday, her symptoms started. She had malaise, fatigue, and headache. All week, she was lethargic and sleepy. In addition, she had weakness in the legs and poor appetite since Sunday. Food does not make her nauseous, but she does not feel like eating. In addition, about 12 days ago, she was diagnosed with a UTI. At that time she had chills, back pain, and lower urinary tract symptoms. She is found to have E. coli sensitive to Septra. She is on Septra for 9 days. Yesterday she went to see her PCP, Dr. Godfrey. They obtained a Lyme test which is currently pending. Her creatinine was elevated at 1.8 at the time. Today she went to see neurology, Dr. Hein. They obtained a stat head MRI which was negative for stroke. Patient had ataxic gait with hyperreflexive patellar reflex. High suspicion for Guillain-Glasgow syndrome given her recent vaccinations. Requested direct admission. 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 Home Medications Scheduled Atenolol (Atenolol) 25 Mg Tab, 25 MG PO QHS, (Reported) Fluticasone/Vilanterol (Breo Ellipta 200-25 Mcg INH) 1 Each Blst.w.dev, 1 PUFF INH DAILY, (Reported) Magnesium Oxide (Magnesium Oxide) 400 Mg Tab, 400 MG PO QHS, (Reported) Montelukast Sodium (Singulair) 5 Mg Tab.chew, 10 MG PO QHS, (Reported) Pantoprazole Sodium (Pantoprazole Sodium) 40 Mg Tab, 40 MG PO DAILY, (Reported) Rosuvastatin Calcium (Rosuvastatin Calcium) 5 Mg Tablet, 5 MG PO QHS, (Reported) Telmisartan (Telmisartan) 40 Mg Tab, 40 MG PO DAILY, (Reported) Scheduled PRN Acetaminophen (Acetaminophen) 325 Mg Tablet, 650 MG PO Q4H PRN for PAIN, (Reported) Albuterol Sulfate (Proair Hfa) 108 Mcg/Act Aer, 2 PUFF INH Q4H PRN for SOB/WHEEZING, (Reported) Allergies Coded Allergies: NUTS (Unverified Allergy, Severe, BREATHING PROBLEM, 01/23/19) cephalexin (Verified Allergy, Severe, THROAT SWELLING, 01/23/19) ciprofloxacin (Verified Allergy, Severe, throat swelling, 01/23/19) Kiwi (Verified Adverse Reaction, Mild, ITCHY, 01/23/19) Past Medical History Medical History 1. Adenomatous polyp of colon 2. History of urinary tract infections 3. Paroxysmal supraventricular tachycardia status post ablation 4. GERD 5. Hypercholesterolemia 6. Asthma 7. Varicose veins 8. Hypertension 9. Unilateral renal atrophy 10. Dry eyes 11. Allergic rhinitis 12. Shingles in December 2019 Surgical History 1. Left ulnar shortening 2. Bilateral foot surgery 3. Lumbar laminectomy 4. Urethral sling 5. Varicose vein surgery 6. Dilatation of Schatzki's ring 7. Left rotator cuff repair 8. Abdominoplasty 9. Tubal ligation Family History Father: History of coronary disease Mother: History of hypertension, hypercholesterolemia, and breast cancer Social History * Smoker: Denies Alcohol: Denies Drugs: denies A-FIB/CHADSVASC A-FIB History Current/History of A-Fib/PAF?: No Review of Systems Constitutional: Denies: Chills, Fever Eyes: Denies: Vision change ENT: Reports: Head Aches; Denies: Sore Throat Skin: Reports: Other (Right arm wasp sting) Pulmonary: Denies: Dyspnea, Cough Cardiovascular: Denies: Chest Pain Gastrointestinal: Reports: Constipation, Other Symptoms (Poor appetite); Denies: Nausea, Abdominal Pain, Diarrhea Genitourinary: Denies: Dysuria Hematologic: Denies: Bruising Neurological: Reports: Incoordination Psych: Denies: Anxiety, Depression Physical Examination General Exam: Positive: Alert, Cooperative Eye Exam: Positive: EOMI; Negative: Sclera icteric ENT Exam: Positive: Atraumatic Neck Exam: Positive: Supple Chest Exam: Positive: Clear to auscultation; Negative: Rales, Rhonchi, Wheezing Heart Exam: Positive: Rate Normal, Regular Rhythm Abdomen Exam: Positive: Normal bowel sounds, Soft; Negative: Tenderness Extremity Exam: Negative: Edema Neuro Exam: Positive: Normal Speech, Cranial Nerves 3-12 NL, Other (Hyporeflexive in patellar reflex bilaterally); Negative: Normal Gait (Ataxia) Psych Exam: Positive: Mental status NL, Mood NL Vital Signs Temperature: 98.7 F Heart rate: 64 Respiratory rate: 16 Blood pressure: 139/82 Oxygen saturation: 97 at room air Weight: 69.7 kg (built in bed scale) Assessment/Plan Mrs. Manzano is a 70-year-old female with hypertension, asthma, and recurrent UTIs who presents from neurology's office for ataxia. High suspicion for Guillain-Glasgow syndrome given her recent vaccinations, ataxia, and patellar hyporeflexia. Neurology recommended MRI of her cervical, thoracic, and lumbosacral spine. Also recommended a spinal tap for CSF protein, CSF glucose, and CSF cell count and IVIG. Plan / VTE VTE Prophylaxis Ordered?: Yes Plan Plan 1. Ataxia MRI brain at neurology office negative for stroke High suspicion for Guillain-Glasgow syndrome, pending work-up We will order IVIG PT and OT We will also order TSH and vitamin B12 level 2. AUREA reported previous creatinine at 0.8 Creatinine at PCPs office was 1.8 Possibly secondary to Septra and poor oral intake Start IVF Supportive care and avoid nephrotoxins We will order UA 3. Asthma Not in exacerbation Continue ICS/LABA, as needed albuterol, and Singulair 4. Hypertension Continue atenolol and telmisartan 5. Hyperlipidemia Continue rosuvastatin 6. Hypomagnesemia Check magnesium level Continue magnesium supplements 7. GERD Continue pantoprazole 8. DVT prophylaxis As patient is expected to have spinal tap, will hold on chemical DVT prophylaxis SCDs and teds Disposition: Pending work-up and clinical improvement MIRIAM LUND DO Jul 22, 2021 16:27
[2021-07-22] MEDS ORDERED: MONT10TA10 PO (19:05)
[2021-07-22] MEDS ORDERED: IMMUNE GLOBULIN IV SCH (19:10)
[2021-07-22] MEDS ORDERED: IMMUNE GLOBULIN 10% 10 GM in IV 1 EA IV SCH (21:00)
[2021-07-22] MEDS ORDERED: IMMUNE GLOBULIN 10% 40 GM in IV 1 EA IV SCH (21:00)
[2021-07-22 21:15] VITALS: BP 155/75
[2021-07-22] MEDS: NS 1,000 ML IV SCH (22:24)
[2021-07-22 22:26] LABS: APPEARANCE, CSF CLEAR (CLEAR); COLOR, CSF COLORLESS (COLORLESS); CSF TUBE# CELL CNT TUBE 1; CSF TUBE# CELL CNT TUBE 4
--- NOTE | 2021-07-22 22:27 | REPVR ---
PROCEDURE INFORMATION: Exam: MR Cervical Spine Without Contrast Exam date and time: 07/22/2021 7:38 PM Age: 70 years old Clinical indication: Weakness; Additional info: Weakness and ataxia TECHNIQUE: Imaging protocol: Multiplanar magnetic resonance images of the cervical spine without contrast. COMPARISON: CT Head without contrast 07/22/2021 5:55 PM FINDINGS: Vertebrae: Unremarkable. Spinal cord: The cervical cord is normal in size there is no evidence of abnormal bright signal intensity. C2-C3: No significant disc disease. No significant spinal stenosis. C3-C4: No significant disc disease. No significant spinal stenosis. C4-C5: There is mild broad-based disc protrusion. C5-C6: There is mild broad-based disc protrusion. There is bony narrowing of the right C6 neural foramina. C6-C7: C6-C7 there is mild broad-based disc protrusion there is bony narrowing of the C7 neural foramina bilaterally. The marrow space has a normal signal intensity. Vertebral arteries: Expected flow voids in the vertebral arteries. IMPRESSION: Normal appearing cervical cord. Electronically signed by: Jude Weems On 07/22/2021 22:26:39 PM
[2021-07-22] MEDS: ROSUVASTATIN 10 MG TAB (CRESTOR) PO SCH (22:35)
[2021-07-22] MEDS: MAGNESIUM OXIDE 400MG TAB (MAG-OX) PO SCH (22:35)
[2021-07-22] MEDS: MONTELUKAST 10 MG TAB PO SCH (22:35)
[2021-07-22] MEDS: ACETAMINOPHEN TAB 650MG DOSE (2X325MG) PO PRN (22:36)
[2021-07-22] MEDS: atenoloL 25 MG TAB PO SCH (22:37)
[2021-07-22 22:38] LABS: CSF TUBE# GLU TUBE 3; CSF TUBE# TP TUBE 3; GLUCOSE CSF 60 MG/DL (40-75); TOTAL PROTEIN,CSF 43 MG/DL (15-45)
--- NOTE | 2021-07-22 22:42 | REPVR ---
PROCEDURE INFORMATION: Exam: MR Thoracic Spine Without Contrast Exam date and time: 07/22/2021 8:19 PM Age: 70 years old Clinical indication: Weakness; Additional info: Weakness and ataxia TECHNIQUE: Imaging protocol: Multiplanar magnetic resonance images of the thoracic spine without intravenous contrast. COMPARISON: MRI-Spine,Cervical without con 07/22/2021 6:54 PM FINDINGS: Vertebrae: There is a moderate wedge-shaped compression of T7 with loss of 1/4 of the vertebral height with associated kyphosis. T2-T3: T2-T3 there is mild posterior disc protrusion but no central canal stenosis. T7-T8: T7-T8 there is mild posterior disc protrusion but no central canal stenosis. T8-T9: T8-T9 there is mild posterior disc protrusion but no central canal stenosis. T10-T11: T10-T11 there is mild posterior disc protrusion but no central spinal canal stenosis. T11-T12: T11-T12 there is moderate posterior disc protrusion but no central canal stenosis. Other bones/joints: The marrow space has a normal signal intensity. IMPRESSION: There is moderate compression of the T7 vertebra consistent with chronic change with mild to moderate kyphosis. No evidence of central canal stenosis thoracic region. Electronically signed by: Jude Weems On 07/22/2021 22:42:19 PM
--- NOTE | 2021-07-22 22:53 | REPVR ---
PROCEDURE INFORMATION: Exam: MR Lumbar Spine Without Contrast Exam date and time: 07/22/2021 8:45 PM Age: 70 years old Clinical indication: Weakness; Prior surgery; Surgery date: 6+ months; Additional info: Weakness and ataxia TECHNIQUE: Imaging protocol: Multiplanar magnetic resonance images of the lumbar spine without intravenous contrast. COMPARISON: MRI-Spine,Thoracic without con 07/22/2021 7:37 PM FINDINGS: Spinal cord: Conus is normal in size with no evidence of bright signal intensity in ending at L1. T12-L1: T12-L1, L1-L2, L2-L3: Mild broad-based bulge of disc but no stenosis. L3-L4: There is mild bulge of the disc into the caudal aspect of the right L3 neural foramina and this with facet hypertrophy causing severe right L3 neural foraminal narrowing. L4-L5: There is a grade 3 spondylolisthesis of L4 on L5 with severe narrowing of the disc space. There is posterior bulge of the disc as well. 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 This all produces extreme central spinal canal stenosis the equivalent of a myelographic block. This also produces very severe bilateral L4 neural foraminal narrowing. L5-S1: There is mild central disc protrusion. There is facet hypertrophy bilaterally with mild narrowing of the L5 neural foramina. Other bones/joints: The marrow space has a normal signal intensity. IMPRESSION: 1. The L4-L5 level demonstrates a very severe grade 3 spondylolisthesis of L4 on L5 with narrowing of the disc space. This along with the bilateral spondylolysis produces very severe central spinal canal stenosis the equivocal end of a myelographic block. There is also very severe bilateral L4 neural foraminal narrowing. 2. Severe right L3 neural foraminal narrowing. 3. Small left kidney consider correlation with CT or ultrasound. Electronically signed by: Jude Weems On 07/22/2021 22:53:12 PM
[2021-07-22 23:40] VITALS: BP 126/63
[2021-07-23] VITALS (14 sets, daily range): BP systolic 114–147; BP diastolic 57–97
[2021-07-23] MEDS: ADVAIR HFA 230/21MCG INHALER INH SCH ×3 (00:13→19:42)
[2021-07-23] MEDS ORDERED: diphenhydrAMINE 50MG/ML VIAL (J1200) IV ONE (04:15)
[2021-07-23] MEDS ORDERED: methylPREDNISolone 125MG 2ML VIAL IV ONE (04:40)
[2021-07-23] MEDS: ACETAMINOPHEN TAB 650MG DOSE (2X325MG) PO PRN ×2 (04:55→18:23)
--- NOTE | 2021-07-23 05:22 | IPNPDOC ---
Text Note Date of Service The patient was seen on 07/23/21. NOTE Notified patient with IVIG infusion skilled nursing through infusion experience some IV site redness, itching and hives. Infusion was stopped. Vital signs remained stable. Patient was given 50 mg of IV Benadryl and had some relief. Urticaria/hives would be a mild reaction and would be okay to proceed with infusion. Opted for Solu-Medrol dose and Tylenol prior to restart. Unfortunately, patient then had episode of transient chest heaviness and then jerking/spasm motions of her extremities before infusion could be restarted. She also complains to "shakiness" sensation, ?possibly related to steroids - jitteriness. Blood pressure 147/82, heart rate 60, respiratory rate 13, SPO2 97% room air temperature 97.9. Up-to-date regards chest and lower back pain as rate related IVIG infusion side effects; however these occurred when infusions on hold. Uncertain regarding her spasms may be relative to other underlying conditions. At present, given patient with questionable array of symptoms will hold IV infusion for now and give time for monitoring and appreciate Neurology feedback in AM. Would suggest premedication prior to next IVIG trial. 15 minute recheck 145/80 hr 61, rr 14, 02 96% RA T98.6 with subsiding symptoms per pt. RN notified of plan. VSKyra, I+O VSKyra, I+O Laboratory Tests 07/22/21 17:11 Vital Signs Date Time Temp Pulse Resp B/P (MAP) Pulse Ox O2 Delivery O2 Flow Rate FiO2 07/23/21 05:05 97.9 60 13 147/82 (103) 97 Room Air I&O- Last 24 Hours up to 6 AM 07/23/21 06:00 Intake Total 611 ml Output Total 150 ml Balance 461 ml SANTIAGO FIGUEROA NP Jul 23, 2021 05:18
[2021-07-23 08:11] LABS: HEMATOCRIT 37.7 % (36.0-47.0); HEMOGLOBIN 12.2 g/dl (12.0-15.5); MEAN CORPUSCULAR HGB CONC 32.4 g/dl (32.0-36.5); MEAN CORPUSCULAR VOLUME 92.9 fl (80.0-96.0); PLATELET COUNT, AUTOMATED 248 10^3/uL (150-450); RED BLOOD COUNT 4.06 10^6/uL (4.00-5.40); WHITE BLOOD COUNT 6.5 10^3/uL (4.0-10.0)
[2021-07-23] MEDS: PANTOPRAZOLE 40MG TAB (PROTONIX) PO SCH (08:13)
[2021-07-23] MEDS: NS 1,000 ML IV SCH ×3 (08:13→21:23)
[2021-07-23] MEDS: TELMISARTAN 20 MG TAB PO SCH (08:14)
[2021-07-23 08:34] LABS: CALCIUM LEVEL 8.9 MG/DL (8.8-10.2); CREATININE FOR GFR 1.26 MG/DL (0.55-1.30); GLOMERULAR FILTRATION RATE 44.8 (>45); MAGNESIUM LEVEL 2.4 MG/DL (1.8-2.4); POTASSIUM SERUM 4.9 MEQ/L (3.5-5.1)
--- NOTE | 2021-07-23 16:54 | IPNPDOC ---
Subjective Date Seen The patient was seen on 07/23/21. Subjective Chief Complaint/HPI Mrs. Manzano is a 70-year-old female with hypertension, asthma, and recurrent UTIs who presents from neurology's office for ataxia. CFS results are within normal. MRI lumbosacral spine demonstrated severe spinal canal stenosis. I spoke with the patient. Denied any chest pain or dyspnea. Denies any saddle anesthesia, radiculopathy into legs, or pain. Denies fecal or urinary incontinence. When I touch her feet, decrease sensation in right compared to left. I spoke with neurology. Recommended transfer. No bed availability at [facility] or [facility]. No bed availability at [facility]. I spoke with spinal/neurosurgery at [place], [place]. They were not impressed by radiology read, and suggested we looked into a neurological cause. I spoke to neurology at [facility]. Patient did not tolerate IVIG while here. The other treatment option would be plasma exchange. They can do plasma exchange at [facility]. Accepting physician is Dr. Giordano. No bed available today, possibly tomorrow. Otherwise I contacted neurology and picked up the MRI brain from neurology office. The CD is in the chart Objective Physical Examination General Exam: Positive: Alert, Cooperative Eye Exam: Positive: EOMI; Negative: Sclera icteric ENT Exam: Positive: Atraumatic Neck Exam: Positive: Supple Chest Exam: Positive: Clear to auscultation; Negative: Rales, Rhonchi, Wheezing Heart Exam: Positive: Rate Normal, Regular Rhythm Abdomen Exam: Positive: Normal bowel sounds, Soft; Negative: Tenderness Extremity Exam: Negative: Edema Neuro Exam: Positive: Normal Speech, Cranial Nerves 3-12 NL, Other (Hyporeflexive in patellar reflex bilaterally); Negative: Normal Gait (Ataxia) Psych Exam: Positive: Mental status NL, Mood NL Assessment /Plan Assessment Mrs. Manzano is a 70-year-old female with hypertension, asthma, and recurrent UTIs who presents from neurology's office for ataxia. High suspicion for Guillain-Glasgow syndrome given her recent vaccinations, ataxia, and patellar hyporeflexia. Even though spinal tap was within normal, 10% to 20% patients with Guillain-Glasgow syndrome will have normal spinal taps. Patient has adverse reactions to IVIG. If it is Guillain-Glasgow syndrome, patient will need plasma exchange. [facility] can do plasma exchange. Accepting physician is Dr. Giordano Plan/VTE VTE Prophylaxis Ordered?: Yes Plan 1. Ataxia MRI brain at neurology office negative for stroke High suspicion for Guillain-Glasgow syndrome. 10% to 20% of patients with Guillain-Glasgow syndrome will have normal spinal taps. Patient unable to tolerate IVIG. Next option is plasma exchange. [facility], Dr. Giordano, has accepted the patient, pending bed availability. PT and OT TSH normal. Pending vitamin B12 level and copper level. 2. AUREA reported previous creatinine at 0.8 Creatinine at PCPs office was 1.8 Possibly secondary to Septra and poor oral intake Start IVF Supportive care and avoid nephrotoxins UA unremarkable 3. Asthma Not in exacerbation Continue ICS/LABA, as needed albuterol, and Singulair 4. Hypertension Continue atenolol and telmisartan 5. Hyperlipidemia Continue rosuvastatin 6. Hypomagnesemia Check magnesium level Continue magnesium supplements 7. GERD Continue pantoprazole 8. DVT prophylaxis SCDs and teds Disposition: Pending bed availability for transfer VS, I&O, 24H, [facility] Vital Signs/I&O Vital Signs Date Time Temp Pulse Resp B/P (MAP) Pulse Ox O2 Delivery O2 Flow Rate FiO2 07/23/21 14:00 98.7 83 17 127/74 (91) 96 Room Air I&O- Last 24 Hours up to 6 AM 07/23/21 06:00 Intake Total 1411 ml Output Total 150 ml Balance 1261 ml Laboratory Data 24H LABS Laboratory Tests 2 07/22/21 17:11: Nucleated Red Blood Cells % (auto) 0.0, Prothrombin Time 13.2, Prothromb Time International Ratio 0.96, Activated Partial Thromboplast Time 40.4H, Anion Gap 4L, Glomerular Filtration Rate 32.8L, Calcium Level 9.2, Total Bilirubin 0.3, Aspartate Amino Transf (AST/SGOT) 15, Alanine Aminotransferase (ALT/SGPT) 27, Alkaline Phosphatase 72, Total Protein 7.8, Albumin 3.8, Albumin/Globulin Ratio 1.0L, Thyroid Stimulating Hormone (TSH) 1.910 07/22/21 18:24: Urine Color YELLOW, Urine Appearance CLEAR, Urine pH 6.0, Urine Specific Talmage 1.008, Urine Protein NEGATIVE, Urine Glucose (UA) NEGATIVE, Urine Ketones NEGATIVE, Urine Blood 1+H, Urine Nitrite NEGATIVE, Urine Bilirubin NEGATIVE, Urine Urobilinogen 0.2, Urine Leukocyte Esterase NEGATIVE, Urine WBC (Auto) 0, Urine RBC (Auto) 1, Urine Hyaline Casts (Auto) 0, Urine Bacteria (Auto) NEGATIVE, Urine Squamous Epithelial Cells 0, Urine Sperm (Auto) 07/22/21 22:14: CSF Appearance CLEAR, CSF Color COLORLESS, CSF WBC (Auto) 2, CSF RBC (Auto) < 2H, CSF Glucose (Tube 1) TUBE 3, CSF Total Protein (Tube 1) TUBE 3, CSF Cell Count Tube # TUBE 4, CSF Polynuclear WBCs (%) , CSF Glucose 60, CSF Total Protein 43 07/23/21 07:53: Nucleated Red Blood Cells % (auto) 0.0, Anion Gap 4L, Glomerular Filtration Rate 44.8L, Calcium Level 8.9, Magnesium Level 2.4 CBC/BMP Laboratory Tests 07/22/21 17:11 07/23/21 07:53 Microbiology Microbiology 07/22/21 Blood Culture, Received Pending 07/22/21 Gram Stain - Final, Resulted 07/22/21 CSF Culture, Resulted Pending 07/22/21 Respiratory Virus Panel (PCR) ([facility]) - Final, Complete 07/22/21 Blood Culture, Received Pending MIRIAM LUND DO Jul 23, 2021 16:54
[2021-07-23] MEDS: MONTELUKAST 10 MG TAB PO SCH (21:20)
[2021-07-23] MEDS: ROSUVASTATIN 10 MG TAB (CRESTOR) PO SCH (21:21)
[2021-07-23] MEDS: MAGNESIUM OXIDE 400MG TAB (MAG-OX) PO SCH (21:21)
[2021-07-23] MEDS: atenoloL 25 MG TAB PO SCH (21:22)
[2021-07-24 06:00] VITALS: BP 129/71
[2021-07-24 06:36] LABS: HEMATOCRIT 32.7 % (36.0-47.0); HEMOGLOBIN 10.4 g/dl (12.0-15.5); MEAN CORPUSCULAR HEMOGLOBIN 30.1 pg (27.0-33.0); MEAN CORPUSCULAR HGB CONC 31.8 g/dl (32.0-36.5); MEAN CORPUSCULAR VOLUME 94.5 fl (80.0-96.0); PLATELET COUNT, AUTOMATED 240 10^3/uL (150-450); RED BLOOD COUNT 3.46 10^6/uL (4.00-5.40)
[2021-07-24 06:54] LABS: CALCIUM LEVEL 8.5 MG/DL (8.8-10.2); CREATININE FOR GFR 1.24 MG/DL (0.55-1.30); GLOMERULAR FILTRATION RATE 45.7 (>45); MAGNESIUM LEVEL 2.2 MG/DL (1.8-2.4); POTASSIUM SERUM 4.5 MEQ/L (3.5-5.1)
[2021-07-24] MEDS: ADVAIR HFA 230/21MCG INHALER INH SCH ×2 (07:25→20:22)
[2021-07-24] MEDS: PANTOPRAZOLE 40MG TAB (PROTONIX) PO SCH (07:55)
[2021-07-24] MEDS: TELMISARTAN 20 MG TAB PO SCH (07:57)
[2021-07-24] MEDS: ACETAMINOPHEN TAB 650MG DOSE (2X325MG) PO PRN (07:58)
[2021-07-24] MEDS ORDERED: ACETAMINOPHEN TAB 650MG DOSE (2X325MG) PO PRN (09:00)
[2021-07-24] MEDS ORDERED: FIORICET TAB PO PRN (09:00)
[2021-07-24 14:00] VITALS: BP 158/83
--- NOTE | 2021-07-24 16:22 | IPNPDOC ---
Subjective Date Seen The patient was seen on 07/24/21. Subjective Chief Complaint/HPI Mrs. Manzano is a 70-year-old female with hypertension, asthma, and recurrent UTIs who presents from neurology's office for ataxia. This morning, she denied any chest pain or dyspnea. Renal function has improved. I called the [facility] transfer center. No bed availability today. Objective Physical Examination General Exam: Positive: Alert, Cooperative Eye Exam: Positive: EOMI; Negative: Sclera icteric ENT Exam: Positive: Atraumatic Neck Exam: Positive: Supple Chest Exam: Positive: Clear to auscultation; Negative: Rales, Rhonchi, Wheezing Heart Exam: Positive: Rate Normal, Regular Rhythm Abdomen Exam: Positive: Normal bowel sounds, Soft; Negative: Tenderness Extremity Exam: Negative: Edema Neuro Exam: Positive: Normal Speech, Cranial Nerves 3-12 NL, Other (Hyporeflexive in patellar reflex bilaterally); Negative: Normal Gait (Ataxia) Psych Exam: Positive: Mental status NL, Mood NL Assessment /Plan Assessment Mrs. Manzano is a 70-year-old female with hypertension, asthma, and recurrent UTIs who presents from neurology's office for ataxia. High suspicion for Guillain-Glasgow syndrome given her recent vaccinations, ataxia, and patellar hyporeflexia. Even though spinal tap was within normal, 10% to 20% patients with Guillain-Glasgow syndrome will have normal spinal taps. Patient has adverse reactions to IVIG. If it is Guillain-Glasgow syndrome, patient will need plasma exchange. [facility] do plasma exchange. Accepting physician is Dr. Gioradno. Pending bed availability Plan/VTE VTE Prophylaxis Ordered?: Yes Plan 1. Ataxia MRI brain at neurology office negative for stroke High suspicion for Guillain-Glasgow syndrome. 10% to 20% of patients with Guillain-Glasgow syndrome will have normal spinal taps. Patient unable to tolerate IVIG. Next option is plasma exchange. [facility], Dr. Giordano, has accepted the patient, pending bed availability. PT and OT TSH normal. Pending vitamin B12 level and copper level. 2. AUREA reported previous creatinine at 0.8 Creatinine at PCPs office was 1.8 Possibly secondary to Septra and poor oral intake Start IVF Supportive care and avoid nephrotoxins UA unremarkable 3. Asthma Not in exacerbation Continue ICS/LABA, as needed albuterol, and Singulair 4. Hypertension Continue atenolol and telmisartan 5. Hyperlipidemia Continue rosuvastatin 6. Hypomagnesemia Check magnesium level Continue magnesium supplements 7. GERD Continue pantoprazole 8. DVT prophylaxis SCDs and teds Disposition: Pending bed availability for transfer VS, I&O, 24H, [facility] Vital Signs/I&O Vital Signs Date Time Temp Pulse Resp B/P (MAP) Pulse Ox O2 Delivery O2 Flow Rate FiO2 07/24/21 14:00 98.7 60 18 158/83 (108) 98 Room Air I&O- Last 24 Hours up to 6 AM 07/24/21 06:00 Intake Total 1660 ml Output Total 1675 ml Balance -15 ml Laboratory Data 24H LABS Laboratory Tests 2 07/24/21 05:51: Nucleated Red Blood Cells % (auto) 0.0, Anion Gap 6L, Glomerular Filtration Rate 45.7, Calcium Level 8.5L, Magnesium Level 2.2 CBC/BMP Laboratory Tests 07/24/21 05:51 Microbiology Microbiology 07/22/21 Blood Culture - Preliminary, Resulted No growth after 24 hours . All specim... 07/22/21 Gram Stain - Final, Resulted 07/22/21 CSF Culture, Resulted Pending 07/22/21 Respiratory Virus Panel (PCR) ([facility]) - Final, Complete 07/22/21 Blood Culture - Preliminary, Resulted No growth after 24 hours . All specim... MIRIAM LUND DO Jul 24, 2021 16:22
[2021-07-24] MEDS: NS 1,000 ML IV SCH (19:23)
--- NOTE | 2021-07-24 20:13 | CR ---
CONSULTATION DATE: 07/23/2021 REFERRING PROVIDER: Martínez Davenport DO REASON FOR CONSULTATION: Further evaluation and management of suspected Guillain-[place] syndrome. HISTORY OF PRESENT ILLNESS: Rishi Manzano is a 70-year-old right-handed female with past medical history significant for hypertension, asthma, recurrent UTIs and chronic low back pain. The patient received a flu vaccination and pneumococcal vaccination this past Sunday. Later within the week, the patient was noted to be quite lethargic and sleepy, more than usual. When she was awake, she was lucid but she would easily fall back asleep again. She was resting most of days. She started to develop significant difficulty ambulating. She described symptoms as ataxia. She does have baseline numbness of her right foot and toes and left toes. The patient initially was evaluated by her primary care provider on . A stat MRI of the brain was arranged which was negative for acute stroke. Only small white matter disease and cerebral atrophy was noted similar to what it was back in 2019. The patient on the following day had worsening symptoms and was seen in the outpatient neurology office by Dr. Richard Hein. 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 She was transferred to [facility] for admission. Later that evening, she had a spinal tap which was normal. She was given IVIG. She initially developed itching in she ears and then chest along with a large hive at the IV site. 50 mg of Benadryl was given to the patient. Solu-Medrol 125 mg was given but there was no benefit. IVIG was discontinued. The patient did end up having MRI imaging of the cervicothoracic spine which did not reveal any cord compression. 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 The patient had severe bilateral L4 neural foramen narrowing and severe right L3 neural foramen narrowing. The patient has history of ongoing low back pain for which he was following with the pain clinic and receiving epidural injections. Two years ago, she was advised that she should probably get surgery for her low back. During the initial examination on July 23, the patient did have ankle dorsiflexion weakness and weakness of foot eversion. This was noted bilaterally. She had possible 5- strength in the quadriceps and 5- strength in the iliopsoas. She had normal strength in the upper extremities. The patient did have the detriment to light touch in the lower extremities. She had absent reflexes at the patellas and at the Achilles. Romberg testing was positive and the patient was clearly ataxic in her gait. She no longer is having extra tiredness and sleepiness. She has no back pain in a seated position. However, if she leans forward, pain jumps to a 7/10. The amount of gait ataxia is slightly out of proportion to the weakness noted. The spinal tap did not reveal supporting evidence of Guillain-[place] syndrome. The patient does not have ongoing progressive symptoms. She has stable ataxia at this point. She does not eat much red meat. B12 and copper levels are pending. The patient would benefit from a neurosurgical evaluation of her spine. REVIEW OF SYSTEMS: 14-point review of systems obtained and is negative except as per HPI. PAST MEDICAL HISTORY: 1. Hypertension. 2. Asthma. 3. Recurrent UTIs. 4. Chronic low back pain. 5. Gastroesophageal reflux disease. 6. Paroxysmal supraventricular tachycardia, status post ablation. 7. Edematous polyps of the colon. 8. Hypercholesterolemia. 9. Asthma. 10. Varicose veins. 11. Hypertension. 12. Unilateral renal atrophy. 13. Shingles, December,. 14. Allergic rhinitis. 15. Dry eyes. PAST SURGICAL HISTORY: 1. Left ulnar shortening. 2. Bilateral foot surgery. 3. Lumbar laminectomy. 4. Urethral sling. 5. Varicose vein surgery. 6. Dilation of Schatzki's ring. 7. Left rotator cuff repair. 8. Abdominoplasty. 9. Tubal ligation. FAMILY HISTORY: Father with coronary disease. Mother with hypertension, hyperlipidemia and breast cancer. SOCIAL HISTORY: Patient denies use of any tobacco, alcohol or illicit drugs. PHYSICAL EXAMINATION: Blood pressure 145/80, pulse rate 61. Respiratory rate is 14. Temperature is 98.6 degrees Fahrenheit. Oxygenation is 96% on room air. Patient is oriented to person, place and time. Speech, language comprehension and repetition are intact. Pupils are 3 mm on the left, 2-1/2 mm on the right, both round and reactive to light. Extraocular movements are intact without nystagmus. Sensation, V1, V2, V3 is intact to light touch. Tongue is midline. Hearing is slightly subjectively decreased on the left compared to right. Extraocular movements are intact in all directions without nystagmus. There is no weakness of sternocleidomastoid. There appears to be subtle weakness in the left deltoid, 5-, otherwise 5/5 strength in the upper extremities. There is 5- strength in bilateral iliopsoas, 5- in the quadriceps. Tibialis anterior is 4/5. Eversion is 4/5. Inversion is 5-. Gastroc strength is 5/5. The patient is able to rise from a seated position without the use of her arms. She is ataxic and cannot walk a straight line. She needs assistance to ambulate safely. She does not have any gross ataxia, dysmetria on finger to nose. Positional sense is slightly impaired distally at the toes. There is a sensory gradient to light touch in the lower extremities. It is ataxic. ASSESSMENT AND PLAN: A 70-year-old female with sudden gait ataxia following pneumococcal and flu vaccination this past Sunday followed by symptoms of somnolence, tiredness for several days with known history of spinal stenosis, degenerative disc disease of the lumbar spine with sudden worsening of gait. Initially constellation of symptoms and timing of flu vaccinations raise suspicion of early Guillain-[place] syndrome. Spinal tap at this point is not supportive although 10-15% of the cases can demonstrate normal spinal tap results early on in the condition. There does not appear to be any progression of the condition at this time. The patient is having allergies to IVIG. Given the significant findings of equivocal neurogenic block in the lumbar spine, the patient is recommended to have spine surgical evaluation. She will probably need flexion/extension views, supine versus standing views of the lumbar spine to determine if surgical intervention is necessary. The patient has reasonable strength in the lower extremities with subtle weakness distally. The patient has back pain only in certain positions and it is possible the patient had some form of immune mediated injury to the patient's brain creating the present ataxia and tiredness. She would benefit from re-evaluation by neurosurgery. Transfer has been set up to [facility] in [place]. She has been accepted by neurology for evaluation of IVIG versus plasma exchange treatment. Continue supportive care, DVT prophylaxis, PT, OT evaluation, ambulate with assistance only with walker.
[2021-07-24 20:44] VITALS: BP 159/86
[2021-07-24 21:35] VITALS: BP 159/86
[2021-07-24] MEDS: atenoloL 25 MG TAB PO SCH (21:35)
[2021-07-24] MEDS: MONTELUKAST 10 MG TAB PO SCH (21:35)
[2021-07-24] MEDS: MAGNESIUM OXIDE 400MG TAB (MAG-OX) PO SCH (21:36)
[2021-07-24] MEDS: ROSUVASTATIN 10 MG TAB (CRESTOR) PO SCH (21:36)
[2021-07-25 06:00] VITALS: BP 114/67
[2021-07-25 06:46] LABS: HEMATOCRIT 32.8 % (36.0-47.0); HEMOGLOBIN 10.4 g/dl (12.0-15.5); MEAN CORPUSCULAR HEMOGLOBIN 30.1 pg (27.0-33.0); MEAN CORPUSCULAR HGB CONC 31.7 g/dl (32.0-36.5); MEAN CORPUSCULAR VOLUME 95.1 fl (80.0-96.0); PLATELET COUNT, AUTOMATED 222 10^3/uL (150-450); RED BLOOD COUNT 3.45 10^6/uL (4.00-5.40); WHITE BLOOD COUNT 6.5 10^3/uL (4.0-10.0)
[2021-07-25 06:52] LABS: HEMOGLOBIN A1c 5.9 %
[2021-07-25 06:58] LABS: BLOOD UREA NITROGEN 22 MG/DL (7-18); CALCIUM LEVEL 8.6 MG/DL (8.8-10.2); CARBON DIOXIDE LEVEL 25 MEQ/L (21-32); CHLORIDE LEVEL 114 MEQ/L (98-107); GLOMERULAR FILTRATION RATE > 60.0 (>45); GLUCOSE, FASTING 81 MG/DL (70-100); MAGNESIUM LEVEL 1.9 MG/DL (1.8-2.4); POTASSIUM SERUM 4.4 MEQ/L (3.5-5.1); SODIUM LEVEL 143 MEQ/L (136-145)
[2021-07-25] MEDS: ADVAIR HFA 230/21MCG INHALER INH SCH (07:24)
[2021-07-25] MEDS: PANTOPRAZOLE 40MG TAB (PROTONIX) PO SCH (08:51)
[2021-07-25] MEDS: TELMISARTAN 20 MG TAB PO SCH (08:51)
[2021-07-25] MEDS: NS 1,000 ML IV SCH (08:52)
[2021-07-25 12:40] LABS: THYROGLOBULIN ANTIBODY 15.5 U/ML (<60.0)
[2021-07-25 14:00] VITALS: BP 141/67
--- NOTE | 2021-07-25 16:35 | DS.PDOC ---
Discharge Summary General Date of Admission Jul 22, 2021 at 16:30 Date of Discharge Jul 25, 2021 Discharge Summary PROCEDURES PERFORMED DURING STAY: Spinal tap on 07/22/21 ADMITTING DIAGNOSES: 1. 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 Acute kidney injury 3. Asthma 4. Hypertension 5. Hyperlipidemia 6. Hypomagnesemia 7. GERD DISCHARGE DIAGNOSES: 1. 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 Acute kidney injury 3. Asthma 4. Hypertension 5. Hyperlipidemia 6. Hypomagnesemia 7. GERD 8. Adverse reaction to IVIG COMPLICATIONS/CHIEF COMPLAINT: Guillain [place] Syndrome. HISTORY OF PRESENT ILLNESS: Mrs. Manzano is a 70-year-old female with hypertension, asthma, and recurrent UTIs who presents from neurology's office for ataxia. About 2 weeks ago she had her pneumonia vaccine. Then last Sunday she had her high-dose flu shot. She has had the flu shot before without problem, but unsure if she had a high-dose flu shot before. Then on Sunday, her symptoms started. She had malaise, fatigue, and headache. All week, she was lethargic and sleepy. In addition, she had weakness in the legs and poor appetite since Sunday. Food does not make her nauseous, but she does not feel like eating. In addition, about 12 days ago, she was diagnosed with a UTI. At that time she had chills, back pain, and lower urinary tract symptoms. She is found to have E. coli sensitive to Septra. She is on Septra for 9 days. Yesterday she went to see her PCP, Dr. Gofdrey. They obtained a Lyme test which is currently pending. Her creatinine was elevated at 1.8 at the time. Today she went to see neurology, Dr. Hein. They obtained a stat head MRI which was negative for stroke. Patient had ataxic gait with hyperreflexive patellar reflex. High suspicion for Guillain-Glasgow syndrome given her recent vaccinations. Requested direct admission. 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 HOSPITAL COURSE: The evening, she had MRI of the spine, spinal tap by anesthesiology, and attempted to give IVIG. The MRI of the cervical, thoracic, and lumbosacral spine was obtained on 07/22/2021. MRI lumbosacral was most significant. Demonstrated very severe grade 3 spondylolisthesis of L4 on L5. There is also very severe central spinal canal stenosis and suggested that this was equivocal to a myelographic block. Patient told me she knew about her anterolisthesis and had lumbar laminectomy in the past. Denies urinary incontinence or saddle anesthesia. She does have decreased sensations in the right foot when compared to left. Denies radicular pain into the legs. IVIG was attempted that night as well. During the infusion, she had IV site redness, itching, and hives. Patient also told me she has had itching in ears bilaterally. It was stopped, and she was given Benadryl which relieved symptoms. They tried again by premedicating. She was given Solu-Medrol and Tylenol. Afterwards she developed transient chest heaviness and jerking/spasm motions in her extremities. IVIG was aborted that night. The CSF results were within normal. I discussed this with neurology. They said in about 10% to 15% of patients with Guillain-Glasgow syndrome will have normal spinal taps. Since patient cannot tolerate IVIG, they recommended transfer to another facility where they can do an alternative treatment for Guillain-Glasgow syndrome. I called hospitals and [facility] and they do not have any bed availability. I spoke with neurology, Dr. Giordano, at [facility]. They do have capabilities for plasma exchange. Dr. Giordano accepted the patient. We are waiting for bed availability. During that waiting, we also obtain labs for MAX, antidouble-stranded DNA, anti-Ro, anti-La, anti-Ma, anti-Ta, anti-Hu, anti-Ri, anti-Yo, anti-Tr, voltage-gated calcium channel antibody, anti-NMDA receptor antibody, thyroglobulin antibody, antigad 65 antibody, gliadin IgG and IgA, heavy metal, copper level, and vitamin D level. Vitamin B12 was within normal at 590. Syphilis serology was reactive, pending Treponema pallidum ab, and CSF VDRL. Pending Lyme screen. ID was consulted for the syphilis serology reactivity. They suggested that this was a false positive as she is monogamous and her CSF would have been positive. This morning, patient denies any chest pain or dyspnea. She felt that her appetite has been improving. She still very ataxic when she works with physical therapy. She is also noticed a mild active tremor. Labs demonstrated that her AUREA has resolved and she is back at baseline. We were notified that there was a bed availability. Patient will be transferred to [facility]. DISCHARGE MEDICATIONS: Please see below. ALLERGIES: Please see below. PHYSICAL EXAMINATION ON DISCHARGE: VITAL SIGNS: Please see below. GENERAL: Comfortable, in no apparent distress. HEENT: EOMI, sclera clear. NECK: Supple. RESPIRATORY: Lungs clear to auscultation bilaterally, no rales, wheeze or rhonchi. CARDIOVASCULAR: Regular rate and rhythm. ABDOMEN: Soft, nontender, no guarding or rebound tenderness. Normal bowel sounds. NEUROLOGICAL: Cranial nerves III through XII grossly intact PSYCHOLOGICAL: Normal mood and affect LABORATORY DATA: Please see below. IMAGING: Radiologist interpretation MRI cervical spine without contrast Normal appearing cervical cord. MRI thoracic spine without contrast There is moderate compression of the T7 vertebra consistent with chronic change with mild to moderate kyphosis. No evidence of central canal stenosis thoracic region. MRI lumbosacral spine without contrast 1. The L4-L5 level demonstrates a very severe grade 3 spondylolisthesis of L4 on L5 with narrowing of the disc space. This along with the bilateral spondylolysis produces very severe central spinal canal stenosis the equivocal end of a myelographic block. There is also very severe bilateral L4 neural foraminal narrowing. 2. Severe right L3 neural foraminal narrowing. 3. Small left kidney consider correlation with CT or ultrasound. PROGNOSIS: Guarded ACTIVITY: As tolerated. DIET: As tolerated DISCHARGE PLAN: Transfer to [facility] DISPOSITION: [facility]. DISCHARGE INSTRUCTIONS: 1. Follow-up with neurologist at [facility] 2. Since patient cannot tolerate IVIG and had reaction to premedication, consider plasma exchange 3. MRI brain was obtained from outpatient neurology clinic and put on a disc, this should be sent up with the patient to [facility] DISCHARGE CONDITION: Stable. Total time spent on discharge planning, discharge summary, and medication reconciliation: 55 minutes Vital Signs/I&Os Vital Signs Date Time Temp Pulse Resp B/P (MAP) Pulse Ox O2 Delivery O2 Flow Rate FiO2 07/25/21 14:00 96.8 76 17 141/67 (91) 98 Room Air I&O- Last 24 Hours up to 6 AM 07/25/21 05:59 Intake Total 1170 ml Output Total 1000 ml Balance 170 ml Laboratory Data Labs 24H Laboratory Tests 2 07/25/21 06:12: 07/25/21 06:20: Erythrocyte Sedimentation Rate 17, Anion Gap 4L, Glomerular Filtration Rate > 60.0, Calcium Level 8.6L, Magnesium Level 1.9, C-Reactive Protein, Quantitative < 0.30 07/25/21 06:21: Nucleated Red Blood Cells % (auto) 0.0, Estimated Mean Plasma Glucose 123H, Hemo globin A1c 5.9, Anti-Thyroglobulin Antibody 15.5, Syphilis Serology REACTIVEA CBC/BMP Laboratory Tests 07/25/21 06:20 07/25/21 06:21 Microbiology Microbiology 07/22/21 Blood Culture - Preliminary, Resulted No Growth after 48 hours. All Specime... 07/22/21 Gram Stain - Final, Complete 07/22/21 CSF Culture - Final, Complete 07/22/21 Respiratory Virus Panel (PCR) (LILO) - Final, Complete 07/22/21 Blood Culture - Preliminary, Resulted No Growth after 48 hours. All Specime... Discharge Medications Scheduled Atenolol (Atenolol) 25 Mg Tab, 25 MG PO QHS, (Reported) Fluticasone/Vilanterol (Breo Ellipta 200-25 Mcg INH) 1 Each Blst.w.dev, 1 PUFF INH DAILY, (Reported) Magnesium Oxide (Magnesium Oxide) 400 Mg Tab, 400 MG PO QHS, (Reported) Montelukast Sodium (Montelukast Sodium) 10 Mg Tablet, 10 MG PO QHS, (Reported) Pantoprazole Sodium (Pantoprazole Sodium) 40 Mg Tab, 40 MG PO DAILY, (Reported) Rosuvastatin Calcium (Rosuvastatin Calcium) 5 Mg Tablet, 5 MG PO QHS, (Reported) Telmisartan (Telmisartan) 40 Mg Tab, 40 MG PO DAILY, (Reported) Scheduled PRN Acetaminophen (Acetaminophen) 325 Mg Tablet, 650 MG PO Q4H PRN for PAIN, (Reported) Albuterol Sulfate (Proair Hfa) 108 Mcg/Act Aer, 2 PUFF INH Q4H PRN for SOB/WHEEZING, (Reported) Allergies Coded Allergies: NUTS (Unverified Allergy, Severe, BREATHING PROBLEM, 01/23/19) cephalexin (Verified Allergy, Severe, THROAT SWELLING, 01/23/19) ciprofloxacin (Verified Allergy, Severe, throat swelling, 01/23/19) Kiwi (Verified Adverse Reaction, Mild, ITCHY, 01/23/19) MIRIAM LUND DO Jul 25, 2021 16:35
--- NOTE | 2021-07-25 18:54 | ECGEPIP ---
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
--- NOTE | 2021-07-26 09:46 | CR ---
CONSULTATION DATE: 07/25/2021 REASON FOR CONSULTATION: I was asked to consult by Martínez Davenport DO for evaluation of ataxia with concern of positive syphilis test. HISTORY OF PRESENT ILLNESS: Mrs. Manzano is a 70-year-old female with a history of hypertension and asthma who presented to [facility] on 07/22 on week after she received her flu shot. The patient three days after her flu shot on 07/26 was having some GI issues especially with nausea and excessive fatigue with malaise and headache. The patient had a respiratory panel on 07/18 that was negative. On 07/21, the patient started to feel lethargic and sleepy and then had trouble with ataxia and difficulty with gait. She had weakness in her lower extremities, poor appetite and was admitted on the after she was seen by Dr. Jenkins who noticed that she had significant ataxia, lower extremity weakness and there was concern of Guillain-Howells syndrome. The patient denied having fevers. She had a mild headache, no chills, no nausea, vomiting or diarrhea. At this point, it was only for 24 hours. She had recently been treated for an E. coli urinary tract infection with low back pain and chills and had received Bactrim for ten days. A Lyme serology done as an outpatient was negative. [place] but denies having tick bites or rashes. She had a lumbar puncture done on the weekend which was negative for CSF pleocytosis. Total protein, glucose were normal. CSF BioFire PCR was negative and serology was negative. The patient was treated with IVIG for possible Guillain-Howells but developed hives and chest tightness and therefore these were discontinued after one dose. SOCIAL HISTORY: She is to Dr. Manzano. 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 She has only had one sexual partner all her life, no history of syphilis, no smoking or drinking. 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 HOME MEDICATIONS: 1. Atenolol 25 mg daily. 2. Breo Ellipta 200/25 one inhalation daily. 3. Magnesium oxide 400 mg q.h.s. 4. Montelukast 5 mg p.o. daily. 5. Pantoprazole 40 mg daily. 6. Rosuvastatin 5 mg q.h.s. 7. Telmisartan 40 mg daily. PAST MEDICAL HISTORY: 1. Colon adenomas. 2. History of recurrent UTIs. 3. Paroxysmal supraventricular tachycardia, status post ablation. 4. Gastroesophageal reflux disease. 5. Hypercholesterolemia. 6. Asthma. 7. Varicose veins. 8. Hypertension. 9. Renal atrophy. 10. Dry eyes. 11. Allergic rhinitis. 12. Shingles in December of 2019 for which she follows with Dr. Jenkins. PAST SURGICAL HISTORY: 1. Left ulnar surgery. 2. Bilateral foot surgery. 3. Lumbar laminectomy. 4. Urethral sling surgery. 5. Dilation of Schatzki's ring. 6. Rotator cuff repair. 7. Abdominoplasty. 8. Tubal ligation. FAMILY HISTORY: Heart disease and hypertension in both parents. ALLERGIES: Cephalexin and cipro. LABORATORY DATA: White count 6.5, hemoglobin 10.4, hematocrit 32.8, platelets 222, ESR 17. Sodium 143, potassium 4.4, chloride 114, bicarb 25, BUN 22, creatinine 0.8, glucose 81, HBUNC 5.9, calcium 8.6, magnesium 1.9, CRP less than 0.3. Vitamin E was pending. TSH 1.9, normal. Syphilis serology reactive, RPR pending, treponemal pallidum antibody confirmatory, immunoblot pending. Lyme disease serology 07/21 negative. Anti-NMDA receptor pending. Blood cultures negative . CSF cultures negative. Respiratory panel negative x2 on 07/18 and 07/22. IMAGING: Head CT: Normal appearing CT of the brain, clear sinuses, mastoids, orbits symmetric. Thoracic lumbosacral MRI showed disc protrusions at T7, 8, 9, 10, 11 and 12, mild to moderate with a moderate compression fracture at T7 with chronic changes and mild to moderate kyphosis. Lumbar spine MRI showed spondylolysis, L3 spondylolisthesis, L4-L5 severe gait restraint, spondylolisthesis of L4 with very severe central spinal canal stenosis with bilateral L4 neural foraminal narrowing and severe L3, right side neural foraminal narrowing as well. PHYSICAL EXAMINATION: Vital Signs: Temperature is 96.8, pulse 76, respirations 17, blood pressure 141/67, O2 sat 98% on room air. Heart: Normal S1, S2, no murmurs, rubs or gallops. Lungs: Clear. No wheezes, rales or rhonchi. Abdomen: Soft, nontender, no hepatosplenomegaly. Back: Mild lumbosacral tenderness. Extremities: No clubbing, cyanosis or edema, right lower extremity mild weaker strength 5- compared to left side. She has severe ataxia. Finger to nose: She has slight tremor at the terminal tremor. She is not able to walk in a straight line. She is falling backwards highly. She crosses her feet as she is walking. Upper extremity strength is normal. Dorsiflexion, both feet are normal. Absent knee and ankle reflexes. Neurologic/psychiatric: Alert and oriented x3, normal affect, pleasant. IMPRESSION: This is a 70-year-old female with a history of hypertension, hyperlipidemia, admitted with neurologic symptoms concerning for Guillain-Howells although most of her presentation is ataxia and difficulty with her gait. This happened one week after her flu shot but her CSF does not any pleocytosis nor is total protein elevated. Her syphilis antibody was positive but confirmatory testing was pending. This could be a false positive result. The patient has only one sexual partner in her life. She has been for the past 45 years, denies history of syphilis in the past. That would be a very unlikely presentation for neurosyphilis with a normal total CSF white count and normal total protein. PLAN: We will wait for results of RPR and confirmatory syphilis antibody with immunoblot before making any further recommendation. The patient was being transferred to [facility] for second opinion. TITA
== END 2021-07-25 19:18 | disposition short-term general hospital (02) | DRG 95 ==
LOC: M MSPAV 16:30
PROVIDERS: ADMIT Internal Medicine; ATTEND Internal Medicine
PROC: 009U3ZX Drainage of Spinal Canal, Percutaneous Approach, Diagnostic (ICD-10-PCS; principal; 2021-07-22)
DX: G61.0 Guillain-Barre syndrome (principal); N17.9 Acute kidney failure, unspecified; N26.1 Atrophy of kidney (terminal); I10 Essential (primary) hypertension; J45.909 Unspecified asthma, uncomplicated; K21.9 Gastro-esophageal reflux disease without esophagitis; H04.123 Dry eye syndrome of bilateral lacrimal glands; L50.0 Allergic urticaria; M48.061 Spinal stenosis, lumbar region without neurogenic claudication; R27.0 Ataxia, unspecified; E83.42 Hypomagnesemia; E78.5 Hyperlipidemia, unspecified; R53.83 Other fatigue; R07.89 Other chest pain; I83.90 Asymptomatic varicose veins of unspecified lower extremity; Z87.440 Personal history of urinary (tract) infections; Z79.899 Other long term (current) drug therapy; Z88.1 Allergy status to other antibiotic agents; Z91.018 Allergy to other foods; Z86.010 Personal history of colon polyps

== ENCOUNTER → 2021-08-18 | Outpatient (REF) | payer OTHER ==
[~2021-08-18] MED LIST changes: +BREO1INH3 INH; +MONT10TA10 PO; +ROSU5TAB5 PO
[2021-08-18 19:39] LABS: RSV AMPLIFICATION NEGATIVE (NEGATIVE)
== END ==
LOC: M LAB REF 17:14
PROVIDERS: ATTEND Pediatrics
DX: Z11.59 Encounter for screening for other viral diseases (principal)

== ENCOUNTER → 2021-09-15 | Outpatient (REF) | payer MEDICARE, OTHER ==
[~2021-09-15] MED LIST changes: -MONT10TA10 PO; +MONT10TA97 PO
[2021-09-15 19:59] LABS: RSV AMPLIFICATION NEGATIVE (NEGATIVE)
== END ==
LOC: M LAB REF 17:26
PROVIDERS: ATTEND Pediatrics
DX: Z20.828 Contact with and (suspected) exposure to other viral communicable diseases (principal)

== ENCOUNTER → 2021-11-03 | Outpatient (REF) | payer MEDICARE, OTHER | LOC: M LAB REF 11:42 | PROVIDERS: ATTEND Pediatrics | DX: J06.9 Acute upper respiratory infection, unspecified (principal) | CPT/HCPCS: 87637; U0003 ==

== ENCOUNTER → 2021-11-04 | Outpatient (REF) | payer MEDICARE, OTHER ==
[2021-11-04 17:13] LABS: INR 0.92; PROTHROMBIN TIME 12.8 SECONDS (12.7-14.5)
== END ==
LOC: M LAB REF 16:37
PROVIDERS: ATTEND Family Medicine
DX: Z01.818 Encounter for other preprocedural examination (principal); Z79.899 Other long term (current) drug therapy; Z79.51 Long term (current) use of inhaled steroids

== ENCOUNTER → 2021-11-10 | Outpatient (REF) | payer MEDICARE, OTHER | LOC: M LAB REF 17:15 | PROVIDERS: ATTEND Pediatrics | DX: J06.9 Acute upper respiratory infection, unspecified (principal) | CPT/HCPCS: 87633; U0003 ==

== ENCOUNTER → 2021-12-07 | Outpatient (REF) | payer MEDICARE, OTHER | LOC: M SFHCDERM 16:42 | PROVIDERS: ATTEND Physician Assistant | DX: C44.722 Squamous cell carcinoma of skin of right lower limb, including hip (principal) ==

== ENCOUNTER → 2021-12-13 | Outpatient (REF) | payer MEDICARE, OTHER | LOC: M LAB REF 13:04 | PROVIDERS: ATTEND Pediatrics | DX: J06.9 Acute upper respiratory infection, unspecified (principal) ==

== ENCOUNTER → 2022-01-18 | Outpatient (REF) | payer MEDICARE, OTHER ==
[2022-01-18 13:13] LABS: INR 0.91; PROTHROMBIN TIME 12.7 SECONDS (12.7-14.5)
== END ==
LOC: M LAB REF 12:42
PROVIDERS: ATTEND Family Medicine
DX: Z01.818 Encounter for other preprocedural examination (principal)

== ENCOUNTER → 2022-01-23 | Outpatient (REF) | payer MEDICARE, OTHER | LOC: M SFHCDERM 13:48 | PROVIDERS: ATTEND Nurse Practitioner Family | DX: Z48.02 Encounter for removal of sutures (principal) ==

== ENCOUNTER → 2022-01-27 | Outpatient (REF) | payer MEDICARE, OTHER | LOC: M LAB REF 12:51 | PROVIDERS: ATTEND Pediatrics | DX: Z20.822 Contact with and (suspected) exposure to COVID-19 (principal) ==

== ENCOUNTER → 2022-01-30 | Outpatient (CLI) | payer MEDICARE, OTHER ==
[2022-01-30 13:57] LABS: BASO # 0.1 10^3/uL (0.0-0.2); BASO % 0.8 % (0.0-1.0); EOS # 0.2 10^3/uL (0.0-0.5); EOS % 2.6 % (0.0-3.0); HEMATOCRIT 36.8 % (36.0-47.0); HEMOGLOBIN 11.8 g/dl (12.0-15.5); LYMPH # 2.8 10^3/uL (1.5-5.0); LYMPH % 32.5 % (24.0-44.0); MEAN CORPUSCULAR HGB CONC 32.1 g/dl (32.0-36.5); MEAN CORPUSCULAR VOLUME 90.4 fl (80.0-96.0); MONO # 0.5 10^3/uL (0.0-0.8); PLATELET COUNT, AUTOMATED 301 10^3/uL (150-450); RED BLOOD COUNT 4.07 10^6/uL (4.00-5.40); WHITE BLOOD COUNT 8.5 10^3/uL (4.0-10.0)
[2022-01-30 14:33] LABS: ERYTHROCYTE SEDIMENTATION RATE 16 mm/hr (0-30)
== END ==
LOC: M LAB 12:52
PROVIDERS: ATTEND Registered Nurse
DX: M48.062 Spinal stenosis, lumbar region with neurogenic claudication (principal); Z79.899 Other long term (current) drug therapy

== ENCOUNTER → 2022-04-07 | Outpatient (REF) | payer MEDICARE, OTHER ==
[2022-04-07 17:14] LABS: FERRITIN 10 NG/ML (8-252); IRON (FE) 36 UG/DL (50-170); PERCENT SATURATION 7.8 % (13.2-45.0); TOTAL IRON BINDING CAPACITY 462 UG/DL (250-450)
[2022-04-07 17:31] LABS: FOLATE > 24.0 NG/ML; VITAMIN B12 LEVEL 620 PG/ML
== END ==
LOC: M LAB REF 16:14
PROVIDERS: ATTEND Family Medicine
DX: D64.9 Anemia, unspecified (principal)

== ENCOUNTER → 2022-05-05 | Outpatient (CLI) | payer MEDICARE, OTHER | LOC: M WHC 12:35 | PROVIDERS: ATTEND Nurse Practitioner Adult Health | DX: Z12.31 Encounter for screening mammogram for malignant neoplasm of breast (principal) ==

== ENCOUNTER → 2022-05-25 | Outpatient (REF) | payer MEDICARE, OTHER | LOC: M LAB REF 12:11 | PROVIDERS: ATTEND Family Medicine | DX: D64.9 Anemia, unspecified (principal) ==

== ENCOUNTER → 2022-05-26 | Outpatient (CLI) | payer MEDICARE, OTHER | LOC: M RAD 12:21 | PROVIDERS: ATTEND Registered Nurse | DX: N39.0 Urinary tract infection, site not specified (principal) ==

== ENCOUNTER → 2023-03-26 | Outpatient (CLI) | payer MEDICARE, OTHER | LOC: M RAD 09:09 | PROVIDERS: ATTEND Specialist | DX: M25.571 Pain in right ankle and joints of right foot (principal) ==

== ENCOUNTER → 2023-06-11 | Outpatient (CLI) | payer MEDICARE, OTHER | LOC: M RAD 12:28 | PROVIDERS: ATTEND Specialist | DX: M79.604 Pain in right leg (principal) ==

== ENCOUNTER → 2023-07-18 | Outpatient (CLI) | payer MEDICARE, OTHER | LOC: M WHC 13:53 | PROVIDERS: ATTEND Family Medicine | DX: M81.0 Age-related osteoporosis without current pathological fracture (principal); M85.851 Other specified disorders of bone density and structure, right thigh; M85.852 Other specified disorders of bone density and structure, left thigh ==

== ENCOUNTER → 2024-05-09 | Outpatient (CLI) | payer MEDICARE, OTHER ==
[~2024-05-09] MED LIST changes: +MONT5TAB7 PO; +ROSU5TAB40 PO; -ROSU5TAB5 PO; -SING5CHW23 PO
== END ==
LOC: M WHC 11:08
PROVIDERS: ATTEND Nurse Practitioner Adult Health
DX: Z12.31 Encounter for screening mammogram for malignant neoplasm of breast (principal)

== ENCOUNTER → 2024-12-15 | Outpatient (CLI) | payer MEDICARE, OTHER ==
[~2024-12-15] MED LIST changes: -ROSU5TAB40 PO; +ROSU5TAB49 PO
[2024-12-15 12:53] LABS: HEMATOCRIT 42.2 % (36.0-47.0); HEMOGLOBIN 13.3 g/dl (12.0-15.5); MEAN CORPUSCULAR HEMOGLOBIN 29.1 pg (27.0-33.0); MEAN CORPUSCULAR HGB CONC 31.5 g/dl (32.0-36.5); MEAN CORPUSCULAR VOLUME 92.3 fl (80.0-96.0); PLATELET COUNT, AUTOMATED 270 10^3/uL (150-450); RED BLOOD COUNT 4.57 10^6/uL (4.00-5.40)
[2024-12-15 13:00] LABS: ERYTHROCYTE SEDIMENTATION RATE 15 mm/hr (0-30)
[2024-12-15 13:06] LABS: INR 0.95
[2024-12-15 13:20] LABS: ALBUMIN 4.1 G/DL (3.2-5.2); ALKALINE PHOSPHATASE 68 U/L (35-104); ALT/SGPT 37 U/L (7.0-40); AST/SGOT 30 U/L (<34); BILIRUBIN,TOTAL 0.5 MG/DL (0.3-1.2); BLOOD UREA NITROGEN 14 MG/DL (9-23); CALCIUM LEVEL 9.3 MG/DL (8.3-10.6); CARBON DIOXIDE LEVEL 29 MMOL/L (20-31); CHLORIDE LEVEL 109 MMOL/L (98-107); CREATININE FOR GFR 0.78 MG/DL (0.55-1.30); GLOMERULAR FILTRATION RATE > 60.0 (>39); GLUCOSE, FASTING 100 MG/DL (74-106); POTASSIUM SERUM 4.5 MMOL/L (3.5-5.1); SODIUM LEVEL 145 MMOL/L (136-145); TOTAL PROTEIN 7.6 G/DL (5.7-8.2)
== END ==
LOC: M RAD 12:14
PROVIDERS: ATTEND Orthopaedic Surgery
DX: Z01.818 Encounter for other preprocedural examination (principal); M17.12 Unilateral primary osteoarthritis, left knee; Z96.612 Presence of left artificial shoulder joint; R94.31 Abnormal electrocardiogram [ECG] [EKG]

== ENCOUNTER 2025-04-22 09:04 | Day surgery (SDC) | payer MEDICARE, OTHER ==
[~2025-04-22] VITALS: Ht 154.9 cm; Wt 69.9 kg
[~2025-04-22 09:04] MED LIST changes: +MULTTAB61 PO; -PRAV40TA2 PO; +PRAV40TA85 PO
[2025-04-22] MEDS ORDERED: AMPICILLIN SOD 2 GM in DEXTROSE 5% (D5W) MINI-BAG PLU 100 ML IV ONE (09:50)
[2025-04-22] MEDS: AMPICILLIN SOD/SULBACTAM SOD 3 GM in D5W MINI-BAG 100 ML IV ONE (10:22)
[2025-04-22 11:05] VITALS: TEMP 97.3
[2025-04-22 11:24] VITALS: BP 177/86; O2SAT 95
== END 2025-04-22 11:35 | disposition home or self-care (01) ==
LOC: M OPP 09:04
PROVIDERS: ATTEND Internal Medicine Gastroenterology
DX: Z12.11 Encounter for screening for malignant neoplasm of colon (principal); K64.0 First degree hemorrhoids; K57.30 Diverticulosis of large intestine without perforation or abscess without bleeding; Z86.0100 Personal history of colon polyps, unspecified; K31.89 Other diseases of stomach and duodenum; R12 Heartburn; Z88.1 Allergy status to other antibiotic agents; Z91.018 Allergy to other foods; Z79.51 Long term (current) use of inhaled steroids; Z79.899 Other long term (current) drug therapy; J45.909 Unspecified asthma, uncomplicated
CPT/HCPCS: 43239; 88305; G0105; J0295; J3010

== ENCOUNTER → 2025-05-11 | Outpatient (CLI) | payer MEDICARE, OTHER | LOC: M WHC 13:09 | PROVIDERS: ATTEND Nurse Practitioner Adult Health | DX: Z12.31 Encounter for screening mammogram for malignant neoplasm of breast (principal); R92.313 Mammographic fatty tissue density, bilateral breasts ==

== ENCOUNTER → 2025-05-18 | Outpatient (CLI) | payer MEDICARE, OTHER | LOC: M RAD 10:54 | PROVIDERS: ATTEND Nurse Practitioner Adult Health | DX: R22.32 Localized swelling, mass and lump, left upper limb (principal) ==